=== PATIENT | male | born 1945 | race African-American/Black ===

== ENCOUNTER 2017-01-05 12:14 | Inpatient (IN) | payer OTHER ==
[~2017-01-05] VITALS: Ht 167.6 cm; Wt 63.5 kg
--- NOTE | ~2017-01-05 | EKG ---
[address] [place] [address] ELECTROCARDIOGRAM REPORT Name: MINGO LARA Room #: 450-P ADM IN M.R.#: [id number] Admission: 01/05/17 Attend Phys: Charles Bazan DO Discharge: Date of : 41 Report #: [id number] THIS REPORT FOR: //name// [facility] ED Test Date: 2017-01-05 Test Time: 12:58:27 Pat Name: MINGO LARA Department: Room: 450 Gender: M Human Resources Intern: VINAYAK : 1945 Requested By: Pool Govea Order Number: [id number] MD: Ricky Quinn Measurements Intervals [place] Rate: 75 P: -1 IA: 142 QRS: -4 QRSD: 74 T: 1 QT: 390 QTc: 436 Interpretive Statements Sinus rhythm Borderline T abnormalities, inferior leads Minimal ST elevation, anterior leads No previous ECG available for comparison Electronically Signed On 01-06-2017 13:46:28 CDT by Ricky Quinn [email or web address] <ELECTRONICALLY SIGNED> By: Ricky Quinn MD, [facility] 01/06/17 1346 1258 57 Ricky Quinn MD, FACC /EPI
[2017-01-05 12:16] VITALS: BP 110/64
[2017-01-05 13:00] LABS: CALCIUM 9.8 mg/dL (8.5-10.1); CREATININE 1.9 mg/dL (0.7-1.3); POTASSIUM 4.7 mmol/L (3.5-5.1)
[2017-01-05 13:09] LABS: ALBUMIN 4.2 g/dL (3.4-5.0); TOTAL BILIRUBIN 0.6 mg/dL (<0.1-1.0); TOTAL PROTEIN 8.6 g/dL (6.4-8.2); TROPONIN-I 0.04 ng/mL (<0.04-0.07)
[2017-01-05 14:27] LABS: ABSOLUTE NEUTROPHILS 7.5 thou/uL (1.4-8.2); BASOPHILS 1.4 % (0.0-2.0); EOSINOPHILS 3.5 % (0.0-3.0); HEMATOCRIT 43.6 % (42.0-52.0); HEMOGLOBIN 14.1 gm/dL (14.0-18.0); LYMPHOCYTES 24.8 % (24.0-44.0); MCH 30.2 pg (26.0-34.0); MCHC 32.2 g/dL (28.0-37.0); MCV 93.6 fL (80.0-100.0); MONOCYTES 6.2 % (1.0-8.0); PLATELET COUNT 222 thou/uL (150-400); POLYS 64.1 % (36.0-66.0); RBC 4.66 mil/uL (4.50-6.00); WBC 11.7 thou/uL (4.0-11.0)
[2017-01-05 14:31] LABS: MANUAL DIFF NO
[2017-01-05 15:26] VITALS: BP 137/81
[2017-01-05 15:48] LABS: URINE BILIRUBIN NEGATIVE (Negative); URINE BLOOD NEGATIVE (Negative); URINE COLOR YELLOW; URINE GLUCOSE-RANDOM* NEGATIVE (Negative); URINE KETONES NEGATIVE (Negative); URINE LEUKOCYTES-REFLEX NEGATIVE (Negative); URINE PROTEIN (DIPSTICK) NEGATIVE (Negative); URINE UROBILINOGEN 0.2 E.U./dl (0.2-1.0)
[2017-01-05 16:08] VITALS: BP 133/76
[2017-01-05] MEDS ORDERED: PLAVIX 75 MG TA75 M1 PO (16:36)
[2017-01-05] MEDS ORDERED: ASPIR 8181 MG PO ×2 (16:37→16:38)
[2017-01-05] MEDS ORDERED: GRALISE600 MG PO (16:38)
[2017-01-05] MEDS ORDERED: REMERON15 MG PO (16:39)
[2017-01-05] MEDS ORDERED: METOPROLOL SUC100 MG PO (16:39)
[2017-01-05] MEDS ORDERED: PROTONIX40 M1 PO (16:40)
[2017-01-05] MEDS ORDERED: CILOSTAZOL 100100 M1 PO (16:40)
[2017-01-05] MEDS ORDERED: PRAVACHOL20 MG PO (16:40)
[2017-01-05] MEDS ORDERED: ACCUNEB SO1.25 MG/1 INH (16:42)
[2017-01-05] MEDS ORDERED: CALCIUM 500 +1 EAC5 PO (16:43)
[2017-01-05] MEDS ORDERED: VITAMIN D 5050000 I1 PO (16:44)
[2017-01-05] MEDS ORDERED: OXYCODONE HCL15 MG PO (16:44)
[2017-01-05 17:06] VITALS: BP 123/85
[2017-01-05 17:24] LABS: PROTIME 10.2 Seconds (9.3-11.4)
[2017-01-05 21:20] VITALS: BP 115/68
[2017-01-06] VITALS (7 sets, daily range): BP systolic 103–130; BP diastolic 20–81
[2017-01-07 03:01] VITALS: BP 121/77
[2017-01-07 04:51] LABS: ABSOLUTE NEUTROPHILS 9.1 thou/uL (1.4-8.2); BASOPHILS 0.4 % (0.0-2.0); EOSINOPHILS 0.8 % (0.0-3.0); HEMATOCRIT 40.9 % (42.0-52.0); HEMOGLOBIN 13.5 gm/dL (14.0-18.0); LYMPHOCYTES 17.1 % (24.0-44.0); MCH 30.5 pg (26.0-34.0); MCV 92.3 fL (80.0-100.0); MONOCYTES 4.9 % (1.0-8.0); PLATELET COUNT 201 thou/uL (150-400); POLYS 76.8 % (36.0-66.0); RBC 4.43 mil/uL (4.50-6.00); WBC 11.8 thou/uL (4.0-11.0)
[2017-01-07 05:06] LABS: CALCIUM 8.9 mg/dL (8.5-10.1); CREATININE 1.2 mg/dL (0.7-1.3); POTASSIUM 3.4 mmol/L (3.5-5.1)
[2017-01-07 05:12] LABS: MANUAL DIFF NO
[2017-01-07 07:09] VITALS: BP 124/75
[2017-01-07 11:11] VITALS: BP 107/66
[2017-01-07 11:44] VITALS: BP 107/66
[2017-01-07 13:16] VITALS: BP 107/66
[2017-01-07 13:36] VITALS: BP 107/66
== END 2017-01-07 17:25 | disposition home health service (06) | DRG 682 ==
LOC: ER 12:14 → EROBS 15:07 → 4W 15:07 → ENTRNSPT 01-07 17:15 → 4W 01-07 17:25
PROVIDERS: Internal Medicine Endocrinology, Diabetes & Metabolism; Physician Assistant
DX: N17.9 Acute kidney failure, unspecified (principal); G93.41 Metabolic encephalopathy; E86.0 Dehydration; G89.29 Other chronic pain; N18.9 Chronic kidney disease, unspecified; J44.9 Chronic obstructive pulmonary disease, unspecified; Z87.891 Personal history of nicotine dependence
CPT/HCPCS: 10045

== ENCOUNTER 2018-04-12 13:26 | Inpatient (IN) | payer OTHER ==
[~2018-04-12] VITALS: Ht 167.6 cm; Wt 65.3 kg
--- NOTE | ~2018-04-12 | HC ---
[facility] [place] [address] CONSULTATION Name: MINGO LARA Hugo Room #: 357-P [facility] IN M.R.#: [id number] Admission: 04/12/18 Attend Phys: Osmin Castro MD Discharge: Date of : 41 Report #: [id number] THIS REPORT FOR: //name// CC: FAM unknown Osmin Castro DATE OF SERVICE: 04/13/2018 TYPE OF REPORT: Infectious disease consultation. ATTENDING PHYSICIAN: Osmin Castro M.D. REASON FOR CONSULTATION: Pneumonia. HISTORY OF PRESENT ILLNESS: A 72-year-old -Iraqi man, admitted through the Emergency Room with history of increasing cough and sputum production, fever, malaise, sweats and significant weakness. Today, the patient feels better, received a dose of Rocephin and Levaquin 750 IV daily. PAST MEDICAL HISTORY: COPD, restless legs syndrome, stent in the legs, neck arthritis and chronic pain syndrome. MEDICATIONS: At home include clopidogrel bisulfate 75 mg daily, aspirin 81 mg daily, gabapentin 600 mg p.o. t.i.d., mirtazapine 15 mg at bedtime, metoprolol 100 p.o. b.i.d., pravastatin 20 mg at bedtime, pantoprazole 40 mg daily, albuterol inhalation treatments, oxycodone IR 15 mg q. 6h. p.r.n. and ergocalciferol 50,000 units weekly. Here at the hospital, the patient receiving treatment with Levaquin 750 mg daily and receive a gram of vancomycin IV. He is also on treatment with senna, oxycodone p.r.n., polyethylene glycol, subcutaneous heparin, insulin lispro per sliding scale, p.r.n. glucose, glucagon and p.r.n. acetaminophen. SOCIAL HISTORY: See H and P, old records. FAMILY HISTORY: See H and P, old records. REVIEW OF SYSTEMS: As above and see H and P. PHYSICAL EXAMINATION: GENERAL: Elderly man. VITAL SIGNS: Temperature on admission 102.6, down to 100 this morning, pulse 106, respirations 17, BP 94/59 and O2 saturation 100% on 4 liters oxygen nasal cannula. HEENMT: Head normocephalic and atraumatic. Heavy arcus cornealis. Bilateral pupils reactive to light. Mouth edentulous. No thrush. NECK: Supple. No thyromegaly. [facility] [address] [place] [address] CONSULTATION Name: MINGO LARA Room #: 357-P [facility] IN [facility]#: [id number] Admission: 04/12/18 Attend Phys: Osmin Castro MD Discharge: Date of : 43 Report #: [id number] LUNGS: Crackles at right base posteriorly. HEART: S1 and S2. No gallop or murmur. ABDOMEN: Soft. No masses or megaly. GENITALIA AND RECTAL: Deferred. EXTREMITIES: No clubbing or cyanosis. NEUROLOGICAL: Grossly within normal limits. LABORATORY DATA: Azotemia of 25 and a BUN of 25 and creatinine 1.6, resolved after intravenous fluids hydration. The patient's albumin is decreased at 2.2 g/dL today. The white blood cell count from 16,800 drops to 15,900 today and hemoglobin from 15.2 g/dL drops to 11.5 g/dL and platelets 220,000. The urinalysis negative. MICROBIOLOGY DATA: Blood cultures obtained, negative so far. Rapid influenza test negative. RADIOLOGICAL DATA: CT scan chest PE protocol negative for pulmonary embolism revealed emphysematous changes and right basilar infiltrate. Colonic dilatation noted. ASSESSMENT: 1. Right lower lobe pneumonia, possible pneumococcal. 2. Emphysematous changes. 3. Colonic distention, question etiology. 4. Dehydration, improved. 5. Azotemia, improved. 6. Status post stenting of neck and lower extremities. 7. Edentulous. SUGGESTIONS: Recommend obtaining urine for pneumococcal and legionella antigen as well as ESR and CRP and since the patient already improved, we will continue Levaquin 750 mg IV daily for possible community-acquired pneumonia. Dr. Castro, thank you for requesting my suggestions. <ELECTRONICALLY SIGNED> By: Dante Ross MD 04/14/18 1248 1141 0004 Dante Ross MD /nt
--- NOTE | ~2018-04-12 | EKG ---
[address] [address] ELECTROCARDIOGRAM REPORT Name: MINGO LARA Room #: 357-P ADM IN M.R.#: [id number] Admission: 04/12/18 Attend Phys: Osmin Castro MD Discharge: Date of : 43 Report #: [id number] THIS REPORT FOR: //name// [facility] ED Test Date: 2018-04-12 Test Time: 15:01:44 Pat Name: MINGO LARA Department: Room: 357 Gender: M Senior Test Engineer: Ana. : 1945 Requested By: Esperanza Gaytan Order Number: [id number] MD: Quang Ross Measurements Intervals [place] Rate: 121 P: 48 IA: 129 QRS: 62 QRSD: 65 T: 69 QT: 286 QTc: 406 Interpretive Statements Sinus tachycardia Probable left atrial enlargement Compared to ECG 01/05/2017 12:58:27 Sinus rhythm no longer present T-wave abnormality no longer present ST (T wave) deviation no longer present Electronically Signed On 04-12-2018 20:50:38 OFFICER CAPTAIN by Quang Ross [email or web address] <ELECTRONICALLY SIGNED> By: Quang Ross MD 04/12/182049 1501 1501 Quang Ross MD /EPI
[~2018-04-12 13:26] MED LIST: ACCUNEB SO1.25 MG/1 INH; ASPIR 8181 MG PO; CALCIUM 500 +1 EAC5 PO; CILOSTAZOL 100100 M1 PO; GRALISE600 MG PO; METOPROLOL SUC100 MG PO; OXYCODONE HCL15 MG PO; PLAVIX 75 MG TA75 M1 PO; PRAVACHOL20 MG PO; PROTONIX40 M1 PO; REMERON15 MG PO; VITAMIN D 5050000 I1 PO
[2018-04-12 13:27] VITALS: BP 118/76
[2018-04-12 14:18] LABS: URINE BILIRUBIN NEGATIVE (Negative); URINE BLOOD NEGATIVE (Negative); URINE CLARITY CLEAR; URINE COLOR YELLOW; URINE GLUCOSE-RANDOM* NEGATIVE (Negative); URINE KETONES NEGATIVE (Negative); URINE LEUKOCYTES-REFLEX NEGATIVE (Negative); URINE NITRITE-REFLEX NEGATIVE (Negative); URINE PROTEIN (DIPSTICK) NEGATIVE (Negative); URINE UROBILINOGEN 0.2 E.U./dl (0.2-1.0)
[2018-04-12 14:47] LABS: HEMATOCRIT 45.3 % (42.0-52.0); HEMOGLOBIN 15.2 gm/dL (14.0-18.0); MCH 32.5 pg (26.0-34.0); MCHC 33.7 g/dL (28.0-37.0); MCV 96.6 fL (80.0-100.0); RBC 4.69 mil/uL (4.50-6.00); RDW 14.8 % (10.5-14.5); WBC 16.8 thou/uL (4.0-11.0)
[2018-04-12 14:56] LABS: ANION GAP 10 mmol/L (7-16); BUN 25 mg/dL (7-18); CALCIUM 9.9 mg/dL (8.5-10.1); CHLORIDE 102 mmol/L (98-107); CO2 23 mmol/L (21-32); CREATININE 1.6 mg/dL (0.7-1.3); GLUCOSE 97 mg/dL (74-106); POTASSIUM 4.6 mmol/L (3.5-5.1); SODIUM 135 mmol/L (136-145)
[2018-04-12 15:04] LABS: ALBUMIN 3.5 g/dL (3.4-5.0); LIPASE 117 U/L (73-393); SGOT 24 U/L (15-37); SGPT 25 U/L (30-65); TOTAL BILIRUBIN 0.5 mg/dL (<0.1-1.0); TOTAL PROTEIN 8.3 g/dL (6.4-8.2); TROPONIN-I <0.06 ng/mL (<0.06)
[2018-04-12 18:28] VITALS: BP 118/76
[2018-04-12 18:47] VITALS: BP 126/72
[2018-04-12 19:30] VITALS: BP 106/69
[2018-04-12] MEDS ORDERED: FOSAMAX 70 MG T70 MG PO (19:53)
[2018-04-12] MEDS ORDERED: CILOSTAZOL 100100 M1 PO (19:53)
[2018-04-12] MEDS ORDERED: K-DUR10 MEQ PO (19:55)
[2018-04-12] MEDS ORDERED: ROBAXIN 750 MG750 M1 PO (19:56)
[2018-04-12] MEDS ORDERED: OMEPRAZOLE 20 M20 M1 PO (19:57)
[2018-04-12] MEDS ORDERED: PAXIL10 MG PO (19:58)
[2018-04-12] MEDS ORDERED: KONSYL PSYLLIU3.4 GM PO (19:59)
[2018-04-13] VITALS (7 sets, daily range): BP systolic 94–131; BP diastolic 59–83
[2018-04-13 05:42] LABS: HEMATOCRIT 35.4 % (42.0-52.0); MCH 31.6 pg (26.0-34.0); MCHC 32.6 g/dL (28.0-37.0); MCV 96.9 fL (80.0-100.0); RBC 3.65 mil/uL (4.50-6.00); WBC 15.9 thou/uL (4.0-11.0)
[2018-04-13 05:49] LABS: HEMOGLOBIN 11.5 gm/dL (14.0-18.0)
[2018-04-13 05:57] LABS: ALBUMIN 2.2 g/dL (3.4-5.0); CALCIUM 8.4 mg/dL (8.5-10.1); POTASSIUM 3.9 mmol/L (3.5-5.1); TOTAL BILIRUBIN 0.5 mg/dL (<0.1-1.0)
[2018-04-14 03:45] VITALS: BP 127/80
[2018-04-14 07:36] VITALS: BP 107/69
[2018-04-14 10:15] LABS: ABSOLUTE NEUTROPHILS 8.8 thou/uL (1.4-8.2); BASOPHILS 0.7 % (0.0-2.0); EOSINOPHILS 0.9 % (0.0-3.0); HEMOGLOBIN 12.1 gm/dL (14.0-18.0); LYMPHOCYTES 18.4 % (24.0-44.0); MCH 31.9 pg (26.0-34.0); MCHC 32.8 g/dL (28.0-37.0); MCV 97.3 fL (80.0-100.0); MONOCYTES 2.8 % (1.0-8.0); PLATELET COUNT 222 thou/uL (150-400); POLYS 77.2 % (36.0-66.0); WBC 11.3 thou/uL (4.0-11.0)
[2018-04-14 10:19] LABS: CALCIUM 9.2 mg/dL (8.5-10.1); CREATININE 1.2 mg/dL (0.7-1.3); POTASSIUM 3.7 mmol/L (3.5-5.1)
[2018-04-14 11:34] VITALS: BP 118/75
[2018-04-14 15:47] VITALS: BP 122/77
[2018-04-14 18:57] VITALS: BP 131/83
[2018-04-15 03:33] VITALS: BP 125/77
[2018-04-15 07:24] VITALS: BP 120/77
[2018-04-15 11:46] VITALS: BP 146/100
[2018-04-15 13:15] VITALS: BP 136/84
[2018-04-15 17:06] VITALS: BP 120/66
[2018-04-15 19:31] VITALS: BP 131/90
[2018-04-16 03:22] VITALS: BP 113/73
[2018-04-16 07:25] VITALS: BP 128/82
[2018-04-16] MEDS ORDERED: LEVAQUIN 500 M500 M3 PO (08:26)
[2018-04-16 10:11] VITALS: BP 128/82
[2018-04-16 11:11] VITALS: BP 128/82
== END 2018-04-16 13:29 | disposition home health service (06) | DRG 871 ==
LOC: ER 13:26 → 3W 17:11 → EROBS 17:11 → 3W 19:12 → ENTRNSPT 04-16 12:10 → EDTRNSPTSTS 04-16 12:26 → 3W 04-16 13:29
PROVIDERS: Family Medicine; Student in an Organized Health Care Education/Training Program
DX: A41.9 Sepsis, unspecified organism (principal); J18.1 Lobar pneumonia, unspecified organism; J96.10 Chronic respiratory failure, unspecified whether with hypoxia or hypercapnia; N17.9 Acute kidney failure, unspecified; G25.81 Restless legs syndrome; M19.90 Unspecified osteoarthritis, unspecified site; E86.0 Dehydration; J43.9 Emphysema, unspecified; M81.0 Age-related osteoporosis without current pathological fracture; E78.5 Hyperlipidemia, unspecified; M54.5 Low back pain; G47.00 Insomnia, unspecified; F17.210 Nicotine dependence, cigarettes, uncomplicated; Z71.6 Tobacco abuse counseling; Z99.81 Dependence on supplemental oxygen; Z95.820 Peripheral vascular angioplasty status with implants and grafts; Z79.02 Long term (current) use of antithrombotics/antiplatelets; Z79.82 Long term (current) use of aspirin; Z79.899 Other long term (current) drug therapy
CPT/HCPCS: 10879

== ENCOUNTER 2018-06-04 08:02 | Emergency (ER) | payer OTHER ==
[~2018-06-04] VITALS: Ht 167.6 cm; Wt 66.7 kg
[~2018-06-04 08:02] MED LIST changes: +FOSAMAX 70 MG T70 MG PO; +K-DUR10 MEQ PO; +KONSYL PSYLLIU3.4 GM PO; +LEVAQUIN 500 M500 M3 PO; +OMEPRAZOLE 20 M20 M1 PO; +PAXIL10 MG PO; +ROBAXIN 750 MG750 M1 PO
[2018-06-04 08:54] LABS: ABSOLUTE NEUTROPHILS 11.7 thou/uL (1.4-8.2); BASOPHILS 0.9 % (0.0-2.0); EOSINOPHILS 0.1 % (0.0-3.0); HEMATOCRIT 45.9 % (42.0-52.0); HEMOGLOBIN 15.6 gm/dL (14.0-18.0); LYMPHOCYTES 13.2 % (24.0-44.0); MONOCYTES 2.7 % (1.0-8.0); PLATELET COUNT 272 thou/uL (150-400); POLYS 83.1 % (36.0-66.0); RBC 4.88 mil/uL (4.50-6.00); RDW 13.8 % (10.5-14.5); WBC 14.1 thou/uL (4.0-11.0)
[2018-06-04 08:57] LABS: ANION GAP 15 mmol/L (7-16); BUN 13 mg/dL (7-18); CALCIUM 10.1 mg/dL (8.5-10.1); CHLORIDE 97 mmol/L (98-107); CO2 23 mmol/L (21-32); CREATININE 1.2 mg/dL (0.7-1.3); GLUCOSE 110 mg/dL (74-106); POTASSIUM 4.3 mmol/L (3.5-5.1); SODIUM 135 mmol/L (136-145)
[2018-06-04 09:05] LABS: ALBUMIN 3.9 g/dL (3.4-5.0); LIPASE 85 U/L (73-393); SGOT 22 U/L (15-37); SGPT 18 U/L (30-65); TOTAL BILIRUBIN 0.5 mg/dL (<0.1-1.0); TOTAL PROTEIN 9.2 g/dL (6.4-8.2); TROPONIN-I <0.06 ng/mL (<0.06)
--- NOTE | 2018-06-04 09:24 | EKG ---
[place] [address] [facility] [place] [address] ELECTROCARDIOGRAM REPORT Name: MINGO LARA Hugo Room #: [facility]..#: [id number] Admission: Attend Phys: Discharge: Date of : 43 Report #: [id number] THIS REPORT FOR: //name// [facility] ED Test Date: 2018-06-04 Test Time: 08:58:13 Pat Name: MINGO LARA Department: Room: Gender: M [employer] Shift Lead: latoya : 1945 Requested By: Fredy Gomez Order Number: [id number] MD: Ricky Quinn Measurements Intervals [place] Rate: 90 P: 59 OK: 143 QRS: 73 QRSD: 83 T: 72 QT: 386 QTc: 473 Interpretive Statements Sinus rhythm Abnormal R-wave progression, early transition Compared to ECG 04/12/2018 15:01:44 Sinus tachycardia no longer present Electronically Signed On 06-04-2018 9:24:06 PHYSICAL EDUCATION DEPARTMENT CHAIR by Ricky Quinn [email or web address] <ELECTRONICALLY SIGNED> By: Ricky Quinn MD, [facility] 06/04/18 0924 0858 0858 Ricky Quinn MD, FACC /EPI
[2018-06-04 10:12] LABS: URINE BILIRUBIN NEGATIVE (Negative); URINE BLOOD NEGATIVE (Negative); URINE CLARITY CLEAR; URINE COLOR YELLOW; URINE GLUCOSE-RANDOM* NEGATIVE (Negative); URINE KETONES TRACE (Negative); URINE LEUKOCYTES-REFLEX NEGATIVE (Negative); URINE NITRITE-REFLEX NEGATIVE (Negative); URINE PROTEIN (DIPSTICK) NEGATIVE (Negative); URINE SPECIFIC GRAVITY 1.015 (1.005-1.035); URINE UROBILINOGEN 0.2 E.U./dl (0.2-1.0)
[2018-06-04] MEDS ORDERED: ZOFRAN ODT4 MG DISSOLVE (10:32)
[2018-06-04] MEDS ORDERED: CLONIDINE0.1 PO (12:00)
[2018-06-04 12:07] VITALS: BP 168/99
== END 2018-06-04 12:08 | disposition home or self-care (01) ==
LOC: ER 08:02
PROVIDERS: Emergency Medicine
DX: K56.41 Fecal impaction (principal); I10 Essential (primary) hypertension; R11.2 Nausea with vomiting, unspecified; J44.9 Chronic obstructive pulmonary disease, unspecified; G25.81 Restless legs syndrome; M19.90 Unspecified osteoarthritis, unspecified site; G89.29 Other chronic pain; Z87.891 Personal history of nicotine dependence

== ENCOUNTER 2018-06-05 20:44 | Inpatient (IN) | payer OTHER ==
[~2018-06-05] VITALS: Ht 152.4 cm; Wt 63.6 kg
[~2018-06-05 20:44] MED LIST changes: +CLONIDINE0.1 PO; +ZOFRAN ODT4 MG DISSOLVE
[2018-06-05 21:07] LABS: URINE BLOOD NEGATIVE (Negative); URINE CLARITY CLEAR; URINE COLOR YELLOW; URINE GLUCOSE-RANDOM* NEGATIVE (Negative); URINE KETONES TRACE (Negative); URINE LEUKOCYTES-REFLEX NEGATIVE (Negative); URINE NITRITE-REFLEX NEGATIVE (Negative); URINE PROTEIN (DIPSTICK) 2+ (Negative); URINE SPECIFIC GRAVITY >= 1.030 (1.005-1.035); URINE UROBILINOGEN 0.2 E.U./dl (0.2-1.0)
[2018-06-05 21:11] LABS: URINE BILIRUBIN NEGATIVE (Negative)
[2018-06-05 21:15] LABS: AMP/METHAMP Negative (Negative); BARBITURATES Negative (Negative); BENZODIAZEPINES POSITIVE (Negative); COCAINE Negative (Negative); METHADONE Negative (Negative); OPIATES POSITIVE (Negative); PCP Negative (Negative)
[2018-06-05 21:17] LABS: BACTERIA-REFLEX 1-9 Few /HPF (None Seen); CRYSTALS None Seen /LPF (None Seen); HYALINE CASTS 0-3 Few /LPF (None Seen); SQUAMOUS None Seen /LPF (0-3); URINE RBC None Seen /HPF (0-2); URINE WBC-REFLEX None Seen /HPF (0-5)
[2018-06-05 21:29] LABS: ABSOLUTE NEUTROPHILS 7.7 thou/uL (1.4-8.2); BASOPHILS 0.2 % (0.0-2.0); EOSINOPHILS 1.4 % (0.0-3.0); HEMATOCRIT 41.8 % (42.0-52.0); HEMOGLOBIN 14.2 gm/dL (14.0-18.0); LYMPHOCYTES 29.8 % (24.0-44.0); MCH 31.9 pg (26.0-34.0); MCHC 33.9 g/dL (28.0-37.0); MCV 93.9 fL (80.0-100.0); MONOCYTES 5.5 % (1.0-8.0); PLATELET COUNT 265 thou/uL (150-400); POLYS 63.1 % (36.0-66.0); RBC 4.45 mil/uL (4.50-6.00); RDW 13.9 % (10.5-14.5); WBC 12.2 thou/uL (4.0-11.0)
[2018-06-05 21:39] LABS: CALCIUM 8.4 mg/dL (8.5-10.1); CREATININE 2.1 mg/dL (0.7-1.3); POTASSIUM 3.5 mmol/L (3.5-5.1)
[2018-06-05 21:50] LABS: ALBUMIN 2.9 g/dL (3.4-5.0); TOTAL BILIRUBIN 0.2 mg/dL (<0.1-1.0); TOTAL PROTEIN 7.1 g/dL (6.4-8.2); TROPONIN-I 0.06 ng/mL (<0.06)
[2018-06-06 00:37] VITALS: BP 106/70
[2018-06-06 00:55] VITALS: BP 105/77
[2018-06-06 05:38] VITALS: BP 108/70
--- NOTE | 2018-06-06 07:54 | NUR ---
PT ARRIVED TO ROOM 362 VIA CART FROM ER WITH IV ANTIBIOTICS IN PROGRESS. ADMISSION ASSESSMENTS COMPLETED. PT HAS DENIED ANY ABDOMINAL PAIN OR NAUSEA. DOES REPORTS LOWER BACK PAIN, WHICH PT STATES IS A CHRONIC CONDITION. DENIES ANY ALLERGIES. SON CHARLINE ASSISTED WITH ANSWERING QUESTIONS.
[2018-06-06 08:55] VITALS: BP 111/79
--- NOTE | 2018-06-06 10:06 | EKG ---
[address] [address] ELECTROCARDIOGRAM REPORT Name: MINGO LARA Room #: 362-P ADM IN M.R.#: [id number] Admission: 06/05/18 Attend Phys: José Antonio Vargas Discharge: Date of : 43 Report #: [id number] THIS REPORT FOR: //name// [facility] ED Test Date: 2018-06-05 Test Time: 20:52:44 Pat Name: MINGO LARA Department: Room: 362 Gender: M Millwork Estimator: THALIA : 1945 Requested By: Esperanza Gaytan Order Number: [id number] MD: Quang Ross Measurements Intervals [place] Rate: 117 P: 38 OK: 116 QRS: 66 QRSD: 72 T: 72 QT: 345 QTc: 482 Interpretive Statements Sinus tachycardia Atrial premature complex Probable left atrial enlargement Abnormal R-wave progression, early transition Borderline prolonged QT interval Compared to ECG 06/04/2018 08:58:13 Atrial premature complex(es) now present Sinus rhythm no longer present Electronically Signed On 06-06-2018 10:06:31 TELESALES SPECIALIST by Quang Ross [email or web address] <ELECTRONICALLY SIGNED> By: Quang Ross MD 06/06/18 1006 51 51 Quang Ross MD /EPI
[2018-06-06 16:06] VITALS: BP 117/76
--- NOTE | 2018-06-06 17:14 | NUR ---
COMPLAINED OF PAIN TO RIGHT HIP AND PRN PAIN MEDICATION ADMINISTERED. PAIN MEDICATION EFFECITVE. FAMILY HERE VISIT. WILL CONT WITH PLAN OF CARE.
[2018-06-06 20:00] VITALS: BP 136/85
[2018-06-07 04:40] VITALS: BP 120/76
[2018-06-07 05:39] LABS: HEMATOCRIT 34.6 % (42.0-52.0); MCH 32.1 pg (26.0-34.0); MCHC 33.5 g/dL (28.0-37.0); MCV 95.9 fL (80.0-100.0); RBC 3.61 mil/uL (4.50-6.00); RDW 13.8 % (10.5-14.5); WBC 9.2 thou/uL (4.0-11.0)
[2018-06-07 05:43] LABS: HEMOGLOBIN 11.6 gm/dL (14.0-18.0)
[2018-06-07 05:48] LABS: CREATININE 1.2 mg/dL (0.7-1.3); POTASSIUM 3.8 mmol/L (3.5-5.1)
--- NOTE | 2018-06-07 07:29 | NUR ---
pt resting off and on during the night. he needed his medication for insomnia tonight. continues on iv fluids. using urinal at bedside. he is pleasant and cooperative. he did take his medication for pain tonight with only minimal effectiveness according to pain scale evaluation. progressing toward discharge goals
[2018-06-07 07:46] VITALS: BP 120/69
[2018-06-07 16:02] VITALS: BP 125/87
--- NOTE | 2018-06-07 19:39 | NUR ---
REQUESTED PAIN MEDICATION THIS AM AND PAIN HAS BEEN UNDER CONTROL THROUGH THE DAY. NO OTHER COMPLAINTS NOTED. HE HAS RESTED IN BED MOST OF THE DAY. OFFERED TO SEAT IN THE CHAIR AND HE STATED HE IS TOO TIRED FOR THAT. STATES HE WILL GET UP TOMORROW. WILL CONT WITH PLAN OF CARE.
[2018-06-07 20:05] VITALS: BP 120/69
--- NOTE | 2018-06-08 03:42 | NUR ---
encouraged turns, he shifts his hips and turns to side on his own. complains of pain to his rt hip and back. his medication for pain is partially effective. continues on iv fluids and antibiotics. hi is talkative and cheerful. progressing toward discharge goals.
[2018-06-08 03:50] VITALS: BP 151/93
[2018-06-08 04:06] LABS: HEMATOCRIT 35.8 % (42.0-52.0); MCH 31.7 pg (26.0-34.0); MCHC 33.5 g/dL (28.0-37.0); MCV 94.6 fL (80.0-100.0); RBC 3.78 mil/uL (4.50-6.00); RDW 13.9 % (10.5-14.5); WBC 9.2 thou/uL (4.0-11.0)
[2018-06-08 04:14] LABS: CALCIUM 8.3 mg/dL (8.5-10.1); CREATININE 1.3 mg/dL (0.7-1.3); POTASSIUM 3.9 mmol/L (3.5-5.1)
[2018-06-08 07:35] VITALS: BP 122/72
--- NOTE | 2018-06-08 13:17 | NUR ---
ASSESSMENT: CM REVIEWED CHART AND MET WITH PATIENT AT THE BEDSIDE. PT IS ALERT AND ORIENTED X4. PT REPORTS THAT HE LIVES IN A HOUSE WITH HIS SON, HIS SONS MOTHER, AND HIS SONS DAUGHTER. PT REPORTS HE HAS ABOUT 6 STEPS WITH HANDRAILS TO GET IN THE HOUSE AND ALL HIS NEEDS ARE ON ONE LEVEL. PT REPORTS HE HAS A CANE AND WALKER AT HOME FOR AMBULATION. PT REPORTS HE HAS A GRAB BAR AND SHOWER BENCH. PT [facility]. PT/OT IS TO EVAL PATIENT BUT PATIENT STATING HE IS PLANNING ON DISCHARGING HOME TODAY WITH . PT WANTED REFERRAL SENT TO [facility]. CM FAXED REFERRAL AND WAITING TO HEAR BACK. PATIENT IS POSSIBLE DISCHARGE TODAY WITH .
[2018-06-08] MEDS ORDERED: CIPRO500 MG PO (13:44)
[2018-06-08] MEDS ORDERED: FLAGYL500 M1 PO (14:03)
[2018-06-08 15:12] VITALS: BP 122/72
--- NOTE | 2018-06-08 16:00 | NUR ---
PATIENT IS BEING DISCHARGED HOME AT THIS TIME WITH FAMILY. SON HERE TO PICK HIM UP. HE DID RECIEVE PAIN MEDICATION AND IT WAS EFFECTIVE. AMBULATED WITH THERAPY EARLIER.
== END 2018-06-08 15:51 | disposition home or self-care (01) | DRG 70 ==
LOC: ER 20:44 → 3W 23:42 → EROBS 23:42 → 3W 06-06 00:47 → ENTRNSPT 06-08 15:43 → EDTRNSPTSTS 06-08 15:45 → 3W 06-08 15:51
PROVIDERS: Nurse Practitioner Family; Student in an Organized Health Care Education/Training Program; ADMIT Hospitalist
DX: G93.41 Metabolic encephalopathy (principal); N17.0 Acute kidney failure with tubular necrosis; A09 Infectious gastroenteritis and colitis, unspecified; J44.9 Chronic obstructive pulmonary disease, unspecified; I10 Essential (primary) hypertension; E78.5 Hyperlipidemia, unspecified; K21.9 Gastro-esophageal reflux disease without esophagitis; G89.29 Other chronic pain; G25.81 Restless legs syndrome; K59.00 Constipation, unspecified; K76.9 Liver disease, unspecified; M19.90 Unspecified osteoarthritis, unspecified site; Z99.81 Dependence on supplemental oxygen; Z87.891 Personal history of nicotine dependence; Z95.820 Peripheral vascular angioplasty status with implants and grafts; Z79.82 Long term (current) use of aspirin; Z79.899 Other long term (current) drug therapy
CPT/HCPCS: 10879

== ENCOUNTER 2018-10-05 13:36 | Emergency (ER) | payer OTHER ==
[~2018-10-05] VITALS: Ht 172.7 cm; Wt 68.5 kg
[~2018-10-05 13:36] MED LIST changes: +CIPRO500 MG PO; +FLAGYL500 M1 PO
[2018-10-05] MEDS ORDERED: CALCIUM 500 +1 EAC5 PO (14:16)
[2018-10-05] MEDS ORDERED: CENTRUM SILVER1 EAC2 PO (14:17)
[2018-10-05] MEDS ORDERED: OMEPRAZOLE20 M2 PO (14:18)
[2018-10-05] MEDS ORDERED: OXYCONTIN15 MG PO (14:22)
[2018-10-05] MEDS ORDERED: PAXIL10 MG PO (14:22)
[2018-10-05] MEDS ORDERED: COMPAZINE10 MG PO (14:26)
[2018-10-05 14:40] LABS: ABSOLUTE NEUTROPHILS 6.8 thou/uL (1.4-8.2); BASOPHILS 0.6 % (0.0-2.0); EOSINOPHILS 2.8 % (0.0-3.0); HEMATOCRIT 33.4 % (42.0-52.0); HEMOGLOBIN 11.2 gm/dL (14.0-18.0); MCH 32.1 pg (26.0-34.0); MCHC 33.6 g/dL (28.0-37.0); MCV 95.3 fL (80.0-100.0); MONOCYTES 6.3 % (1.0-8.0); PLATELET COUNT 291 thou/uL (150-400); POLYS 68.3 % (36.0-66.0); RDW 16.1 % (10.5-14.5); WBC 9.9 thou/uL (4.0-11.0)
[2018-10-05 14:54] LABS: CREATININE 1.7 mg/dL (0.7-1.3); MAGNESIUM 2.3 mg/dL (1.8-2.4); POTASSIUM 3.9 mmol/L (3.5-5.1); TOTAL BILIRUBIN 0.2 mg/dL (<0.1-1.0); TOTAL PROTEIN 6.6 g/dL (6.4-8.2)
[2018-10-05 16:30] LABS: AMP/METHAMP Negative (Negative); BARBITURATES Negative (Negative); BENZODIAZEPINES Negative (Negative); COCAINE Negative (Negative); METHADONE Negative (Negative); OPIATES POSITIVE (Negative); PCP Negative (Negative)
[2018-10-05 17:12] VITALS: BP 123/69
--- NOTE | 2018-10-06 09:09 | EKG ---
[place] [address] [place] [address] ELECTROCARDIOGRAM REPORT Name: MINGO LARA Hugo [facility]: [facility] [id number] ������������������ Admission: 10/05/18 ������������������ Attend Phys: Discharge: 10/05/18 ������������������ Date of : 41 Report #: [id number] ����������������������������������������������������������������� [id number] THIS REPORT FOR: //name// [facility] ED Test Date: 2018-10-05 Test Time: 13:41:41 Pat Name: MINGO LARA Department: Room: Gender: M Rn Endoscopy: NMD : 1945 Requested By: Santiago Vaz Order Number: [id number] MD: Ricky Quinn Measurements Intervals [place] Rate: 74 P: 53 WV: 147 QRS: 68 QRSD: 91 T: 71 QT: 385 QTc: 428 Interpretive Statements Sinus rhythm ST segment elevation, probably early repolarization Compared to ECG 06/05/2018 20:52:44 Sinus tachycardia no longer present Atrial premature complex(es) no longer present Electronically Signed On 10-06-2018 9:09:28 CDT by Ricky Quinn [email or web address] ��������������������������������������������� <ELECTRONICALLY SIGNED> ���������������������������������������� By: Ricky Quinn MD, [facility] ��������������������������������������������� 10/06/18 0909 1341 40 Ricky Quinn MD, [facility] /EPI
== END 2018-10-05 17:14 | disposition home or self-care (01) ==
LOC: ER 13:36
PROVIDERS: Emergency Medicine
DX: T40.2X1A Poisoning by other opioids, accidental (unintentional), initial encounter (principal); E78.5 Hyperlipidemia, unspecified; K21.9 Gastro-esophageal reflux disease without esophagitis; J44.9 Chronic obstructive pulmonary disease, unspecified; G89.29 Other chronic pain; M19.90 Unspecified osteoarthritis, unspecified site; G25.81 Restless legs syndrome; Z87.891 Personal history of nicotine dependence; Y92.89 Other specified places as the place of occurrence of the external cause

== ENCOUNTER 2019-03-04 22:27 | Inpatient (IN) | payer OTHER ==
[~2019-03-04] VITALS: Ht 167.6 cm; Wt 65.8 kg
[~2019-03-04 22:27] MED LIST changes: +CENTRUM SILVER1 EAC2 PO; +COMPAZINE10 MG PO; +OMEPRAZOLE20 M2 PO; +OXYCONTIN15 MG PO
[2019-03-04 22:28] VITALS: BP 119/62
[2019-03-04 23:05] LABS: BE(vivo) -7.5 mmol/L (-2 to +3); HCO3 17.2 mmol/L (22.0-26.0); PCO2 32.9 mmHg (35.0-45.0); PO2 60.3 mmHg (80.0-100.0); pH 7.337 (7.360-7.450)
[2019-03-04 23:30] LABS: ABSOLUTE NEUTROPHILS 6.6 thou/uL (1.4-8.2); BASOPHILS 1.4 % (0.0-2.0); EOSINOPHILS 1.5 % (0.0-3.0); HEMATOCRIT 42.4 % (42.0-52.0); HEMOGLOBIN 13.9 gm/dL (14.0-18.0); LYMPHOCYTES 27.3 % (24.0-44.0); MCH 31.5 pg (26.0-34.0); MCHC 32.7 g/dL (28.0-37.0); MCV 96.4 fL (80.0-100.0); MONOCYTES 5.5 % (1.0-8.0); PLATELET COUNT 226 thou/uL (150-400); POLYS 64.3 % (36.0-66.0); RDW 16.9 % (10.5-14.5); WBC 10.3 thou/uL (4.0-11.0)
[2019-03-04 23:41] LABS: CALCIUM 9.2 mg/dL (8.5-10.1)
[2019-03-04 23:50] LABS: ALBUMIN 3.7 g/dL (3.4-5.0); MAGNESIUM 2.6 mg/dL (1.8-2.4); TOTAL BILIRUBIN 0.5 mg/dL (<0.1-1.0); TOTAL PROTEIN 8.7 g/dL (6.4-8.2)
[2019-03-04 23:53] LABS: TROPONIN-I 0.61 ng/mL (<0.06)
[2019-03-04 23:55] LABS: APTT 27.1 Seconds (24.5-32.8); INR 1.1; PROTIME 11.3 Seconds (9.3-11.4)
[2019-03-05 01:38] LABS: AMP/METHAMP Negative (Negative); BARBITURATES Negative (Negative); BENZODIAZEPINES Negative (Negative); COCAINE Negative (Negative); METHADONE Negative (Negative); OPIATES POSITIVE (Negative); PCP Negative (Negative)
[2019-03-05 02:45] VITALS: BP 117/72
[2019-03-05 03:08] VITALS: BP 116/73
[2019-03-05 05:15] VITALS: BP 120/76
--- NOTE | 2019-03-05 05:35 | NUR ---
PATIENT ADMITTED TO ROOM 209 FROM ER VIA CART ACCOMPANIED BY SON. FULL ADMIT COMPLETED. PATIENT DROWSEY BUT WAKES EASILY. STATES HE HAS CHRONIC PAIN BUT HE FEELS FINE AT THIS TIME. BLOOD CULTURES WERE DRAWN IN THE ER AND ANTIBIOTICS GIVEN. ADEQUATE OXYGENATION ON 2L NC. NO RESP DISTRESS NOTED. HEART RATE AND RHYTHM STABLE. VITAL SIGNS STABLE.
[2019-03-05 05:57] LABS: CALCIUM 8.6 mg/dL (8.5-10.1); CREATININE 1.7 mg/dL (0.7-1.3); POTASSIUM 4.3 mmol/L (3.5-5.1)
[2019-03-05 08:00] VITALS: BP 121/65
--- NOTE | 2019-03-05 10:56 | 2DMMODE ---
[facility] [address] [place] [address] 2 D/M-MODE ECHOCARDIOGRAM Name: MINGO LARA Room #: 209-P [facility] IN [facility]#: [id number] Admission: 03/05/19 Attend Phys: Axel Remy, Discharge: Date of : 43 Report #: [id number] THIS REPORT FOR: //name// APPROVED REPORT Study performed: 03/05/2019 09:51:41 EXAM: Comprehensive 2D, Doppler, and color-flow Echocardiogram Patient Location: Bedside Room #: 209 Status: routine BSA: 1.74 HR: 99 bpm BP: 120/76 mmHg Rhythm: NSR Other Information Study Quality: Fair/low windows Technically limited study due to COPD. Indications Dyspnea, elevated troponin. Hx: HTN, HLD, COPD, PVD. 2D Dimensions RVDd: 30.59 mm IVSd: 9.29 (7-11mm) LVOT Diam: 20.42 (18-24mm) LVDd: 36.31 mm PWd: 8.26 (7-11mm) LVDs: 25.49 (25-40mm) Aortic Root: 29.78 mm Volumes Left Atrial Volume (Systole) Single Plane 4CH: 21.03 mL Single Plane 2CH: 25.06 mL LA ESV Index: 14.00 mL/m2 Aortic Valve AoV Peak Bill.: 1.30 m/s AO Peak Gr.: 6.77 mmHg LVOT Max P.02 mmHg LVOT Max V: 1.23 m/s CHARMAINE Vmax: 3.09 cm2 Mitral Valve E/A Ratio: 0.7 MV Decel. Time: 193.70 ms [facility] [address] [place] [address] 2 D/M-MODE ECHOCARDIOGRAM Name: MINGO LARA Hugo Room #: 209-P [facility] IN [facility]#: [id number] Admission: 03/05/19 Attend Phys: Axel Remy, Discharge: Date of : 43 Report #: [id number] MV E Max Bill.: 0.65 m/s MV A Bill.: 0.90 m/s MV PHT: 56.17 ms IVRT: 72.66 ms Pulmonary Valve PV Peak Bill.: 0.90 m/s PV Peak Gr.: 3.21 mmHg Left Ventricle The left ventricle is normal size. There is normal LV segmental wall motion. There is normal left ventricular wall thickness. Left ventricular systolic function is normal. LVEF is 55-60%. Mild diastolic dysfunction is present (impaired relaxation pattern). Right Ventricle The right ventricle is normal size. The right ventricular systolic function is normal. Atria The left atrium size is normal. The right atrium size is normal. Aortic Valve The aortic valve is normal in structure. No aortic regurgitation is present. There is no aortic valvular stenosis. Mitral Valve The mitral valve is normal in structure. Trace mitral regurgitation. Tricuspid Valve The tricuspid valve is normal in structure. Unable to assess PA pressure. There is no tricuspid valve regurgitation noted. Pulmonic Valve Pulmonic valve is not well visualized. Great Vessels The aortic root is normal in size. Ascending aorta is not well visualized. The inferior vena cava is not well visualized. Pericardium There is no pericardial effusion noted. [facility] [address] [place] [address] 2 D/M-MODE ECHOCARDIOGRAM Name: MINGO LARA Room #: 209-P [facility] IN ..#: [id number] Admission: 03/05/19 Attend Phys: Axel Remy, Discharge: Date of : 43 Report #: [id number] <Conclusion> The left ventricle is normal size. LVEF is 55-60%. The aortic valve is normal in structure. The mitral valve is normal in structure. Trace mitral regurgitation. The tricuspid valve is normal in structure. Pulmonic valve is not well visualized. The aortic root is normal in size. Ascending aorta is not well visualized. There is no pericardial effusion noted. <ELECTRONICALLY SIGNED> By: Marcus Rodriguez MD 03/05/19 1056 1056 1056 Marcus Rodriguez MD /INF
--- NOTE | 2019-03-05 11:55 | NUR ---
PT LEFT UNIT TO [place] FOR STRESS TEST AT APPROXIMATELY 1000.
--- NOTE | 2019-03-05 13:10 | NUR ---
PT BACK FROM STRESS TEST AT 1304.
[2019-03-05 16:00] VITALS: BP 148/78
--- NOTE | 2019-03-05 17:16 | NUR ---
Chart reviewed and case discussed with the care team. Pt here with NSTEMI and Copd. Pt lives with his son and has family with him 25/11. He had a rwalker and a cane. He has had hh in the past year per [place] but none recently. Pt down for testing today. Will ask for therapy evals and follow for possible hh referral at id.
[2019-03-05 20:45] VITALS: BP 141/78
[2019-03-06 03:24] LABS: CALCIUM 8.1 mg/dL (8.5-10.1); CREATININE 1.2 mg/dL (0.7-1.3); POTASSIUM 4.2 mmol/L (3.5-5.1)
[2019-03-06 05:04] VITALS: BP 130/70
[2019-03-06 07:30] VITALS: BP 131/84
--- NOTE | 2019-03-06 07:40 | NUR ---
PT RESTING QUIETLY IN BED REPOSITIONING HIMSELF, PRN PAIN MEDS GIVEN FOR CHRONIC PAIN, VSS, VOIDING PER URINAL, IV FLUIDS INFUSING, WILL CON'T TO MONITOR PER PPOC.
--- NOTE | 2019-03-06 10:49 | NUR ---
ASLEEP, WAKES READILY. AAO. C/O LEG PAIN; WILL TREAT ORDERED. SR/ST PER TELE. ABD FIRM AND DISTENDED; DENIES ABD PAIN. PASSING FLATUS. APPETITE BRISK. FALL PRECAUTIONS IN PLACE, WILL CONTINUE TO MONITOR.
[2019-03-06 11:06] VITALS: BP 124/67
[2019-03-06 17:01] VITALS: BP 141/94
--- NOTE | 2019-03-06 18:36 | NUR ---
ASSUMED CARE AT 1300, SHIFT ASSESSMENT DONE, MEDS GIVEN, VSS. REPORTED PAIN, PRN PAIN MEDS GIVEN. ROOM AIR, NSR ON MONITOR. WILL CONTINUE TO ASSESS AND ASSIST WITH ADLs NEEDED.
[2019-03-06 20:05] VITALS: BP 139/82
--- NOTE | 2019-03-07 04:36 | NUR ---
pt resting quietly in bed thru the noc, prn pain meds given for chronic leg and back pain, assisted up to bathroom this am for medium bm, assessments as charted, vss, will con't to monitor per ppoc.
[2019-03-07 05:05] VITALS: BP 156/99
[2019-03-07 08:39] VITALS: BP 161/106
--- NOTE | 2019-03-07 10:34 | NUR ---
ASSUMED CARE AT 0700, SHIFT ASSESMENT DONE, MEDS GIVEN, VSS. REPORTED PAIN, PRN PAIN MEDS GIVEN. HAD 2 LARGE LIQUID STOOLS TODAY. REFUSED TO TAKE MIRALAX THIS AM. REMAINS ON ROOM AIR, RECEIVING IV FLUIDS. WILL CONTINUE TO ASSESS AND ASSIST WITH ADLs NEEDED.
--- NOTE | 2019-03-07 11:13 | EKG ---
[address] [address] ELECTROCARDIOGRAM REPORT Name: MINGO LARA Room #: 209-P ADM IN M.R.#: [id number] Admission: 03/05/19 Attend Phys: Axel Remy MD Discharge: Date of : 41 Report #: [id number] THIS REPORT FOR: //name// [facility] ED Test Date: 2019-03-04 Test Time: 23:01:28 Pat Name: MINGO LARA Department: Room: 209 Gender: M Machine Chocolate Molder: ashly : 1945 Requested By: Fredy Gomez Order Number: [id number] MD: Quang Ross Measurements Intervals [place] Rate: 80 P: 51 NM: 142 QRS: 58 QRSD: 73 T: 58 QT: 363 QTc: 419 Interpretive Statements Sinus rhythm Probable left atrial enlargement Compared to ECG 10/05/2018 13:41:41 ST (T wave) deviation no longer present Early repolarization no longer present Electronically Signed On 03-07-2019 11:13:11 QM NURSE by Quang Ross [email or web address] <ELECTRONICALLY SIGNED> By: Quang Ross MD 03/07/19 1113 00 00 Quang Ross MD /EPI
[2019-03-07 11:30] LABS: HEMATOCRIT 38.2 % (42.0-52.0); HEMOGLOBIN 12.3 gm/dL (14.0-18.0); MCH 31.2 pg (26.0-34.0); MCHC 32.2 g/dL (28.0-37.0); RBC 3.94 mil/uL (4.50-6.00); RDW 16.7 % (10.5-14.5); WBC 12.3 thou/uL (4.0-11.0)
[2019-03-07 11:50] LABS: ALBUMIN 3.2 g/dL (3.4-5.0); CALCIUM 8.4 mg/dL (8.5-10.1); CREATININE 1.2 mg/dL (0.7-1.3); MAGNESIUM 2.2 mg/dL (1.8-2.4); POTASSIUM 3.7 mmol/L (3.5-5.1); TOTAL BILIRUBIN 0.3 mg/dL (<0.1-1.0); TOTAL PROTEIN 7.5 g/dL (6.4-8.2)
[2019-03-07 12:32] VITALS: BP 149/99
[2019-03-07 16:05] VITALS: BP 144/93
[2019-03-07 20:15] VITALS: BP 161/93
[2019-03-08 01:06] VITALS: BP 141/97
[2019-03-08 05:00] VITALS: BP 161/107
[2019-03-08 05:56] LABS: CALCIUM 8.2 mg/dL (8.5-10.1); POTASSIUM 4.2 mmol/L (3.5-5.1)
[2019-03-08 07:53] LABS: HEMATOCRIT 38.6 % (42.0-52.0); HEMOGLOBIN 12.4 gm/dL (14.0-18.0); MCH 31.3 pg (26.0-34.0); MCHC 32.2 g/dL (28.0-37.0); MCV 97.1 fL (80.0-100.0); RBC 3.97 mil/uL (4.50-6.00); RDW 16.3 % (10.5-14.5)
[2019-03-08 08:00] VITALS: BP 152/89
[2019-03-08 11:50] VITALS: BP 141/76
--- NOTE | 2019-03-08 12:52 | NUR ---
ASSUMED CARE AT 0700, SHIFT ASSESSMENT DONE, MEDS GIVEN, VSS. ON ROOM AIR. PAIN REPORTED TO BILATERAL LOWER EXTREMITY, PRN PAIN MEDS GIVEN. HAD A BM THIS AM. IV FLUIDS DISCONTINUED. WILL CONTINUE TO ASSESS AND ASSIST WITH ADLs NEEDED.
[2019-03-08 16:00] VITALS: BP 134/76
--- NOTE | 2019-03-08 17:28 | NUR ---
PATIENT WORKED WITH THERAPY WITH ONGOING ASSESSMENT INDICATED. DISCUSSED WITH PATIENT HE FEELS HE COULD RETURN HOME. 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 LEFT SKILLED LIST. PATIENT NEEDS TO WORK WITH THERAPY AND HAVE OT EVAL. [facility] FOLLOWING
[2019-03-08 20:45] VITALS: BP 151/94
[2019-03-09 00:45] VITALS: BP 153/87
[2019-03-09 04:45] VITALS: BP 153/92
--- NOTE | 2019-03-09 07:40 | NUR ---
PT RESTING QUIETLY IN ROOM, PRN PAIN MED GIVEN FOR C/O CHRONIC PAIN, VSS, REPORT GIVEN TO NEXT SHIFT TO CON'T WITH PPOC.
[2019-03-09 08:00] VITALS: BP 105/83; BP 160/99
--- NOTE | 2019-03-09 09:48 | NUR ---
ASSUMED CARE AT 0700, SHIFT ASSESMENT DONE, MEDS GIVEN, VSS. WAITING TO BE SEEN BY OCCUPATIONAL THERAPHY. NSR ON TELE, ROOM AIR. REPORTED PAIN, PRN PAIN MEDS GIVEN. WILL CONTINUE TO ASSESS AND ASSIST WITH ADLs NEEDED.
[2019-03-09 16:00] VITALS: BP 142/96
--- NOTE | 2019-03-09 16:34 | NUR ---
FA[facility]ED REFERRAL TO [facility] SPOKE WITH VALERIE IN INTAKE AND SHE RECEIVED REFERRAL AND IS REVIEWING. DP TO FOLLOW.
--- NOTE | 2019-03-09 16:36 | NUR ---
PT recommends post acute care. Sp with patient who wants to return home he does not want to dc to rehab. Sp with dtr and family. dtr reports always family with patient. She reports if he wants to return home they are agreeable. They have utilized [facility] care and agreeable to [facility]. Referral to care. Therapy worked on steps this afternoon and aware of home.
[2019-03-09 16:55] VITALS: BP 160/99
--- NOTE | 2019-03-09 16:56 | NUR ---
[facility]XED RE[facility]ERR[facility] SPOKE WITH INTAKE AND THEY RECEIVED REFERRAL AND CAN ACCEPT. DP TO FOLLOW.
[2019-03-09 21:51] VITALS: BP 145/93
--- NOTE | 2019-03-10 03:39 | NUR ---
PT ARRIVED FROM AT 2140HRS. PT IS AO4 AND LETS NEEDS BE KNOWN. FALL PRECAUTION IN PLACE. ASSESSMENNTS CHARTED. PT COMPLAINED OF SOME PAIN AND WAS TREATED WITH PRN PAIN MEDS. PT WAS ABLE TO GET COMGORTABLE AND SLEEP PART OF THE SHIFT. VSS AND NO S/S OF ACUTE DISTRESS. WILL CONTINUE TO MONITOR.
[2019-03-10 04:46] VITALS: BP 160/92
[2019-03-10 07:40] VITALS: BP 158/89
[2019-03-10 12:59] VITALS: BP 160/99
[2019-03-10] MEDS ORDERED: METOPROLOL SUCC50 MG PO (14:03)
[2019-03-10] MEDS ORDERED: MUCINEX600 MG PO (14:04)
[2019-03-10] MEDS ORDERED: CEFDINIR300 MG PO (14:08)
[2019-03-10] MEDS ORDERED: PREDNISONE 10 M10 M1 PO (14:09)
[2019-03-10 14:37] VITALS: BP 160/99
--- NOTE | 2019-03-10 14:59 | NUR ---
PT ALERT AND ORIENTED TIMES FOUR. VSS, PT DENIES PAIN/SOA. PT TOLERATES MEDS MEALS, PT UP TO CHAIR WITH ASSIST OF ONE. PLANS TO DISCHARGE HOME TODAY. PT PROGRESSING TOWRADS POC GOALS.
[2019-03-12 11:39] VITALS: BP 160/99
== END 2019-03-10 16:17 | disposition home health service (06) | DRG 189 ==
LOC: ER 22:27 → 2N 03-05 00:14 → EROBS 03-05 00:14 → 2N 03-05 02:49 → 4W 03-09 21:54 → ENTRNSPT 03-10 16:01 → 4W 03-10 16:17
PROVIDERS: Emergency Medicine; Nurse Practitioner Family; ADMIT Internal Medicine
DX: J96.21 Acute and chronic respiratory failure with hypoxia (principal); J18.9 Pneumonia, unspecified organism; J44.1 Chronic obstructive pulmonary disease with (acute) exacerbation; N17.9 Acute kidney failure, unspecified; K56.609 Unspecified intestinal obstruction, unspecified as to partial versus complete obstruction; K56.7 Ileus, unspecified; J44.0 Chronic obstructive pulmonary disease with (acute) lower respiratory infection; E78.5 Hyperlipidemia, unspecified; K21.9 Gastro-esophageal reflux disease without esophagitis; G25.81 Restless legs syndrome; M19.90 Unspecified osteoarthritis, unspecified site; G89.4 Chronic pain syndrome; E86.0 Dehydration; F17.210 Nicotine dependence, cigarettes, uncomplicated; I65.29 Occlusion and stenosis of unspecified carotid artery; N18.9 Chronic kidney disease, unspecified; I73.9 Peripheral vascular disease, unspecified; Z96.641 Presence of right artificial hip joint; K59.00 Constipation, unspecified; I25.10 Atherosclerotic heart disease of native coronary artery without angina pectoris; R14.0 Abdominal distension (gaseous); Z95.820 Peripheral vascular angioplasty status with implants and grafts; Z71.6 Tobacco abuse counseling; Z79.82 Long term (current) use of aspirin; Z79.899 Other long term (current) drug therapy; Z98.42 Cataract extraction status, left eye; Z98.41 Cataract extraction status, right eye; Z28.21 Immunization not carried out because of patient refusal
CPT/HCPCS: 10047; 10081

== ENCOUNTER 2019-07-20 20:26 | Inpatient (IN) | payer OTHER ==
[~2019-07-20] VITALS: Ht 170.2 cm; Wt 66.7 kg
[~2019-07-20 20:26] MED LIST changes: +CEFDINIR300 MG PO; +METOPROLOL SUCC50 MG PO; +MUCINEX600 MG PO; +PREDNISONE 10 M10 M1 PO
[2019-07-20 20:27] VITALS: BP 104/58
[2019-07-20] MEDS ORDERED: [UNRECOGNIZED DRUG - OTHER] PO (20:50)
[2019-07-20] MEDS ORDERED: PLAVIX 75 MG TA75 MG PO (20:51)
[2019-07-20] MEDS ORDERED: VITAMIN D31 ML PO (20:53)
[2019-07-20 21:02] LABS: BE(vivo) -5.5 mmol/L (-2 to +3); HCO3 18.2 mmol/L (22.0-26.0); PCO2 30.5 mmHg (35.0-45.0); PO2 71.5 mmHg (80.0-100.0); pH 7.394 (7.360-7.450); sO2 94.6 % (92.0-98.0)
[2019-07-20 21:06] LABS: ABSOLUTE NEUTROPHILS 8.7 thou/uL (1.4-8.2); BASOPHILS 0.8 % (0.0-2.0); EOSINOPHILS 0.8 % (0.0-3.0); HEMATOCRIT 40.7 % (42.0-52.0); LYMPHOCYTES 24.9 % (24.0-44.0); MCH 31.3 pg (26.0-34.0); MONOCYTES 4.9 % (1.0-8.0); PLATELET COUNT 292 thou/uL (150-400); POLYS 68.6 % (36.0-66.0); RBC 4.16 mil/uL (4.50-6.00); RDW 15.2 % (10.5-14.5); WBC 12.6 thou/uL (4.0-11.0)
[2019-07-20 21:14] LABS: CALCIUM 9.9 mg/dL (8.5-10.1); CREATININE 1.8 mg/dL (0.7-1.3); POTASSIUM 4.7 mmol/L (3.5-5.1)
[2019-07-20 21:23] LABS: TROPONIN-I 0.1 ng/mL (<0.06)
[2019-07-20 22:44] LABS: URINE BILIRUBIN NEGATIVE (Negative); URINE BLOOD NEGATIVE (Negative); URINE CLARITY CLEAR; URINE COLOR YELLOW; URINE GLUCOSE-RANDOM* NEGATIVE (Negative); URINE KETONES NEGATIVE (Negative); URINE LEUKOCYTES-REFLEX NEGATIVE (Negative); URINE NITRITE-REFLEX NEGATIVE (Negative); URINE PROTEIN (DIPSTICK) NEGATIVE (Negative); URINE UROBILINOGEN 0.2 E.U./dl (0.2-1.0)
[2019-07-21] VITALS (9 sets, daily range): BP systolic 100–130; BP diastolic 54–72
--- NOTE | 2019-07-21 08:25 | NUR ---
ARRIVED FROM ED THIS MORNING AT 0300. ASSESSMENTS CHARTED, MEDS GIVEN CHARTED. PATIENT HAD BEEN NOT ACTING NORMAL DURING THE DAY, THEN WHILE WAITING FOR EMS TO ARRIVE PATIENT BECAME UNRESPONSIVE THEN ALTERED MENTAL STATUS. PATIENT STARTED ON NORMAL SALINE DRIP. SON WAS AT BEDSIDE TO ANSWER QUESTIONS DURING ADMISSION. PATIENT ON 4 LITERS NC. USING URINAL. PATIENT NEGATIVE FOR INFLUENZA A&B. CT OF CHEST SHOWED MULTIPLE LESIONS IN BILATERAL LUNGS, PET SCAN RECOMMENDED. CONSULTS TO PULMONOLOGY AND ONCOLOGY CALLED. FALL PRECAUTIONS IN PLACE.
--- NOTE | 2019-07-21 11:28 | 2DMMODE ---
[facility] [place] [address] 2 D/M-MODE ECHOCARDIOGRAM Name: MINGO LARA Room #: 201-P ADM IN M.R.#: [id number] Admission: 07/21/19 Attend Phys: Ruperto Douglas MD Discharge: Date of : 41 Report #: [id number] THIS REPORT FOR: cc: [facility] - Clinic physician unknown [facility] - Clinic physician unknown Ricky Quinn MD [facility] ~ APPROVED REPORT Study performed: 07/21/2019 10:08:11 EXAM: Comprehensive 2D, Doppler, and color-flow Echocardiogram Patient Location: Bedside Room #: 201 Status: routine BSA: 1.73 HR: 88 bpm BP: 111/56 mmHg Rhythm: NSR Other Information Study Quality: Technically Difficult Technically limited study due to lung disease. Indications COPD Elevated Troponin Hypertension/HDD HLD 2D Dimensions RVDd: 28.95 mm IVSd: 12.63 (7-11mm) LVOT Diam: 21.03 (18-24mm) LVDd: 29.42 mm PWd: 13.00 (7-11mm) LVDs: 26.38 (25-40mm) Aortic Root: 30.86 mm IVC: 16.00 mm Volumes Left Atrial Volume (Systole) Single Plane 4CH: 11.13 mL Single Plane 2CH: 23.52 mL LA ESV Index: 11.00 mL/m2 Aortic Valve [facility] [address] [place] [address] 2 D/M-MODE ECHOCARDIOGRAM Name: MINGO LARA Room #: 201-P [facility] IN ..#: [id number] Admission: 07/21/19 Attend Phys: Ruperto Douglas MD Discharge: Date of : 41 Report #: [id number] AoV Peak Bill.: 1.25 m/s AO Peak Gr.: 6.23 mmHg LVOT Max P.50 mmHg LVOT Max V: 1.17 m/s CHARMAINE Vmax: 3.26 cm2 Mitral Valve E/A Ratio: 0.7 MV Decel. Time: 205.96 ms MV E Max Bill.: 0.65 m/s MV A Bill.: 0.98 m/s MV PHT: 59.73 ms IVRT: 121.11 ms Pulmonary Valve PV Peak Bill.: 0.87 m/s PV Peak Gr.: 3.04 mmHg Tricuspid Valve RAP Estimate: 5.00 mmHg Left Ventricle The left ventricle is normal size. There is normal LV segmental wall motion. Mild concentric left ventricular hypertrophy. The left ventricular systolic function is normal. The left ventricular ejection fraction is within the normal range. LVEF is 55-60%. Mild diastolic dysfunction is present (impaired relaxation pattern). Right Ventricle The right ventricle is normal size. The right ventricular systolic function is normal. Atria The left atrium size is normal. The right atrium size is normal. Aortic Valve The aortic valve is mildly sclerotic, trileaflet. No aortic regurgitation is present. There is no aortic valvular stenosis. Mitral Valve The mitral valve is normal in structure. Trace mitral regurgitation. No evidence of mitral valve stenosis. Tricuspid Valve The tricuspid valve is normal in structure. There is no tricuspid [facility] [address] [address] 2 D/M-MODE ECHOCARDIOGRAM Name: MINGO LARA Room #: 201-P ADM IN [facility]#: [id number] Admission: 07/21/19 Attend Phys: Ruperto Douglas MD Discharge: Date of : 41 Report #: [id number] valve regurgitation noted. Unable to assess PA pressure. Pulmonic Valve Pulmonic valve is not well visualized. Great Vessels The aortic root is normal in size. IVC is normal in size and collapses >50% with inspiration. Pericardium There is no pericardial effusion. <Conclusion> The left ventricular systolic function is normal. There is normal LV segmental wall motion. LVEF is 55-60%. Mild diastolic dysfunction The aortic valve is mildly sclerotic, trileaflet. No aortic regurgitation or stenosis. The mitral valve is normal in structure. Trace mitral regurgitation. Unable to assess pulmonary artery pressure. There is no pericardial effusion. <ELECTRONICALLY SIGNED> By: Ricky Quinn MD, [facility] 07/21/19 1127 1127 [id number] Ricky Quinn MD, FACC /INF
--- NOTE | 2019-07-21 11:36 | NUR ---
REPORT RECEIVED FROM IRINA MOSLEY, CARE ASSUMED AT 0700. PT ASSESSED AT 0745, VSS, ORTHO BP COMPLETED, PT ORIENTED 2-3, PO PAIN MEDS GIVEN FOR BACK/LEG PAIN 12/12. PT ASLEEP 45 MINUTES LATER, PLAN OF CARE REVIEWED, PT VERBALIZED UNDERSTANDING. SPOKE WITH PT'S DAUGTER AND GAVE UPDATE ON HER FATHER. PT STATES THAT HER DAD SHOULD BE A FULL CODE. WILL MONITOR.
--- NOTE | 2019-07-21 13:39 | NUR ---
INITIAL ASSESSMENT: SW reviewed chart and spoke with nursing and attending physician. Pt was admitted from home due to AMS/elevated troponin. Pt is in isolation. SW spoke with pt's son, Duncan, via phone. Introduced role of SW. Pt lives at home with Duncan and his family. There are 10 steps up to the main living area, and 0 steps after that. Pt normally uses a cane to assist with ambulation. Pt has home O2 and is normally on 2L of O2 at home. Pt's son is unsure of home O2 provider. Prior to admission, pt was independent with ADLs. Pt has used [facility] and [facility] in the past. Pt has been to [facility]. Pt's PCP is Dr. Sean Gilbert at the [facility]. Therapy ordered to evaluate pt for recommendations for discharge needs. Will need insurance authorization for post-acute placement. SW is following to assist as needed with discharge planning.
[2019-07-22 01:00] VITALS: BP 132/80
--- NOTE | 2019-07-22 04:13 | NUR ---
ASSUMED PT CARE AT AROUND 1900, PT IS ALERT AND ORIENTEDX3, ASSESSMENTS CHARTED, SR ON THE MONITOR, VSS STABLE ON ROOM AIR, COMPLAINED OF CHRONIC BACK PAIN, MEDICATED PRN WITH PARTIAL RELIEF, REMAINS ON ISLOTAION, RESTING IN BED WITH NO DISTRESS, WILL CONTINUE TO MONITOR
[2019-07-22 04:30] VITALS: BP 126/66
--- NOTE | 2019-07-22 07:42 | EKG ---
[facility] [place] [address] ELECTROCARDIOGRAM REPORT Name: MINGO LARA Room #: 201-P ADM IN M.R.#: [id number] Admission: 07/21/19 Attend Phys: Ruperto Douglas MD Discharge: Date of : 41 Report #: [id number] THIS REPORT FOR: cc: [facility] - Clinic physician unknown [facility] - Clinic physician unknown Ricky Quinn MD [facility] ~ THIS REPORT FOR: //name// 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
[2019-07-22 09:08] LABS: HEMATOCRIT 35.5 % (42.0-52.0); HEMOGLOBIN 11.6 gm/dL (14.0-18.0); MCH 31.7 pg (26.0-34.0); MCHC 32.6 g/dL (28.0-37.0); MCV 97.4 fL (80.0-100.0); PLATELET COUNT 263 thou/uL (150-400); RBC 3.65 mil/uL (4.50-6.00); RDW 14.8 % (10.5-14.5); WBC 10.1 thou/uL (4.0-11.0)
[2019-07-22 09:16] LABS: CALCIUM 8.9 mg/dL (8.5-10.1); CREATININE 1.4 mg/dL (0.7-1.3)
[2019-07-22 09:18] LABS: POTASSIUM 4.1 mmol/L (3.5-5.1)
[2019-07-22 09:30] VITALS: BP 132/68
[2019-07-22 11:34] LABS: ABSOLUTE NEUTROPHILS 5.5 thou/uL (1.4-8.2); METAMYELOCYTES 1 %
[2019-07-22 11:35] LABS: ATYPICAL LYMPHS 2 %
[2019-07-22 11:37] LABS: ANISOCYTOSIS 1+
[2019-07-22 12:22] VITALS: BP 122/70
--- NOTE | 2019-07-22 15:27 | NUR ---
SW reviewed chart and spoke with nursing and attending physician. Pt remains in Enhanced Isolation. Therapy is working with pt to determine recommendation for disposition. SW is following to assist as needed with discharge planning.
[2019-07-22 16:19] VITALS: BP 136/79
--- NOTE | 2019-07-22 18:15 | NUR ---
ASSUMED CARE OF PATIENT AT 0700. PATIENT IN ISOLATION FOR RULE OUT BRITO VIRUS. DROPLET PRECAUTION ADHERED TO. PATIENT RECEIVING BREATHING TREATMENTS THEREFORE, N95 MASK WORN IN ADDITION TO A FACE SHIELD WITH GOWN AND GLOVES. TOTAL CARE OF PATIENT BY THIS RN. PATIENT HAD DECREASED APPETITE AND STATES THAT HE TAKES MEGACE AT HOME, THIS WAS ADDED BACK TO HIS MAR PER DR. MEZA. PATIENT TAKING OXYCODONE Q 4 HRS FOR CHRONIC LOWER BACK PAIN AND ASKS FOR IT EVERY FOUR HOURS. PATIENT ON IV ANTIBIOTICS AND NS. PATIENT ON ROOM AIR AND DENYING ANY DIFFICULTY BREATHING. PATIENT LEFT FOREARM IV INFILTRATED. IT WAS REMOVED WITHOUT ANY REDNESS, SWELLING OR IRRITATION. PATIENT IS RESTING COMFORTABLY. CONTINUE WITH POC.
[2019-07-22 22:00] VITALS: BP 115/77
[2019-07-23 05:00] VITALS: BP 136/81
[2019-07-23 05:53] LABS: HEMATOCRIT 38.4 % (42.0-52.0); HEMOGLOBIN 12.6 gm/dL (14.0-18.0); MCH 32.1 pg (26.0-34.0); MCHC 32.7 g/dL (28.0-37.0); MCV 98.2 fL (80.0-100.0); RBC 3.92 mil/uL (4.50-6.00); RDW 15.1 % (10.5-14.5); WBC 9.4 thou/uL (4.0-11.0)
[2019-07-23 06:03] LABS: CALCIUM 8.8 mg/dL (8.5-10.1); CREATININE 1.3 mg/dL (0.7-1.3); POTASSIUM 4.3 mmol/L (3.5-5.1)
--- NOTE | 2019-07-23 06:11 | NUR ---
ASSUME CARE 1900. PT/VITALS STABLE. PATIENT COMPLAINS OF INTERMITTENT CHRONIC BACK PAIN. MODERTE TOLERANCE TO ACTIVITY. NO DISTRESS NOTED THROUGH THE NIGHT. NO FEVER, SOA, OR COUGHING NOTED. ASSESSMENT AAS CHARTED. PROGRESSING WELL WITH POC. PLAN IS CONTINUE TO MONITOR FOR SIGNS OF COVID19. WILL CONTINUE TO MONITOR AND FOLLOW WITH POC
[2019-07-23 09:00] VITALS: BP 133/75
--- NOTE | 2019-07-23 13:00 | NUR ---
KRIS reviewed chart. Pt remains in Enhanced Isolation to r/o COVID-19. Therapy is on hold until results are available. Pt with multiple bilateral lung masses. Biopsy and workup will begin once COVIS-19 results are available. KRIS spoke with pt's son, Duncan and dtr, Heather, via phone to provide update . No weekend discharge anticipated. Pt's family is agreeable with referral to [facility]'s . Awaiting additional therapy notes at this time. Referral HH to be sent on Friday. KRIS is following to assist as needed with discharge planning.
[2019-07-23 16:43] VITALS: BP 185/96
[2019-07-23 17:21] VITALS: BP 149/72
--- NOTE | 2019-07-23 19:40 | NUR ---
A/O, cooperative; Coronavirus negative; Dr. Douglas ordered to take off the isolation; HR increased, BP increase, fever, reported to Dr. Douglas and Dr. Taversa, orders given and administrated.
[2019-07-23 20:11] VITALS: BP 148/80
[2019-07-24 04:45] VITALS: BP 112/64
[2019-07-24 06:47] LABS: MCH 32.1 pg (26.0-34.0); MCHC 33.3 g/dL (28.0-37.0); MCV 96.2 fL (80.0-100.0); RBC 4.06 mil/uL (4.50-6.00); RDW 14.8 % (10.5-14.5); WBC 10.7 thou/uL (4.0-11.0)
[2019-07-24 06:58] LABS: CALCIUM 8.9 mg/dL (8.5-10.1); CREATININE 1.2 mg/dL (0.7-1.3); POTASSIUM 4.2 mmol/L (3.5-5.1)
[2019-07-24 07:19] VITALS: BP 101/72
--- NOTE | 2019-07-24 08:07 | NUR ---
[facility] 1900. PT COMPLAINING OF LOWER BACK AND CHEST PAIN AT 10/10. DR. GALLEGOS PRESENT. ORDERS FO MORE EKG/CHEST AND ABDO CT WITH CONTRAST. EKG RESULTS SENT TO DOCTOR MARLON. ORDERS FOR ASA 650 RECEIVED AND TROP IN AM . ONETIME DOSE OF MORPHINE ORDERED/CHEST PAIN RELIEF NOTED. PASSED ON TO DAY NURSE TO TALK TO MD ABOUT CHANGING OR ADDING TO PAIN MEDS COZ OXY 15MG DOES NOT SEEM TO BE HELPING. TYLENOL FOR BREAKTHROUGH PAIN. ASSESSMENT CHARTED. PROGRESSING WELL WITH POC. PLAN IS TO CONTINUE WITH ABX AND MANAGGE PAIN LEVEL. WILL CONTINUE TO FOLLOW WITH POC
--- NOTE | 2019-07-24 09:56 | EKG ---
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: Genoveva CHANG : 1945 Requested By: Ruperto Douglas Order Number: [id number] MD: Tim Delvalle Measurements Intervals [place] Rate: 126 P: 73 AK: 119 QRS: 79 QRSD: 88 T: 84 QT: 343 QTc: 497 Interpretive Statements Sinus tachycardia Minimal ST elevation, inferior leads Borderline prolonged QT interval Compared to ECG 07/20/2019 20:28:57 ST (T wave) deviation now present Sinus rhythm no longer present Early repolarization no longer present Electronically Signed On 07-24-2019 9:55:08 CDT by Tim Delvalle [email or web address] <ELECTRONICALLY SIGNED> By: Tim Delvalle MD 07/24/19 0955 174 174 Tim Delvalle MD /EPI
--- NOTE | 2019-07-24 09:57 | EKG ---
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: Genoveva CHANG : 1945 Requested By: Milan Taveras Order Number: [id number] MD: Tim Delvalle Measurements Intervals [place] Rate: 114 P: 45 [place]: 129 QRS: 66 QRSD: 73 T: 74 QT: 330 QTc: 455 Interpretive Statements Sinus tachycardia Probable left atrial enlargement ST segment abnormalities, consider pericarditis Compared to ECG 07/20/2019 20:28:57 ST (T wave) deviation now present Sinus rhythm no longer present Early repolarization no longer present Electronically Signed On 07-24-2019 9:56:14 CDT by Tim Delvalle [email or web address] <ELECTRONICALLY SIGNED> By: Tim Delvalle MD 07/24/19955 32 32 Tim Delvalle MD /EPI
--- NOTE | 2019-07-24 09:59 | EKG ---
[facility] [place] [address] ELECTROCARDIOGRAM REPORT Name: MINGO LARA Room #: 201-P ADM IN M.R.#: [id number] Admission: 07/21/19 Attend Phys: Ruperto Douglas MD Discharge: Date of : 41 Report #: [id number] THIS REPORT FOR: cc: [facility] - Clinic physician unknown [facility] - Clinic physician unknown Tim Delvalle MD ~ THIS REPORT FOR: //name// 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
[2019-07-24 10:54] LABS: ALBUMIN 3.1 g/dL (3.4-5.0); DIRECT BILIRUBIN 0.5 mg/dL (<0.1-0.2); TOTAL BILIRUBIN 0.5 mg/dL (<0.1-1.0); TOTAL PROTEIN 7.2 g/dL (6.4-8.2)
[2019-07-24 10:58] VITALS: BP 106/68
[2019-07-24 16:18] VITALS: BP 97/57
[2019-07-24 20:13] VITALS: BP 115/68
--- NOTE | 2019-07-24 20:48 | NUR ---
ASSUMED CARE OF PATIENT AT 0700. A&O X 4. PATIENT DENIES ANY CHEST PAIN. ASSESSMENT COMPLETED. PATIENT COMPLAINS OF CHRONIC LOWER BACK PAIN WHICH IS ALLEVIATED WITH OXYCODONE AND LIDOCAINE PAIN PATCH. PATIENT WALKED WITH OT/PT TO THE BATHROOM USING A WALKER AND GAIT BELT WITH MINIMAL ASSISTANCE. PATIENT SAT UP IN THE CHAIR FOR HALF OF THE DAY. PATIENT TO CONTINUE WITH POC.
[2019-07-25 04:45] VITALS: BP 104/72
--- NOTE | 2019-07-25 06:40 | NUR ---
ASSESSMENTS CHARTED, MEDS GIVEN CHARTED. PATIENT RESTING IN BED DURING SHIFT. SINUS RHYTHM DURING SHIFT, LUNGS ARE CLEAR/DIMINISHED ON TWO LITERS OXYGEN. USING URINAL . C/O PAIN 12/12 BACK PAIN. FALL PRECAUTIONS IN PLACE. VSS. PLAN OF CARE IS TO HAVE LUNG BIOPSY ON TUESDAY 07/25.
[2019-07-25 07:30] VITALS: BP 111/63
[2019-07-25 11:30] VITALS: BP 119/61
[2019-07-25 16:50] VITALS: BP 117/76
--- NOTE | 2019-07-25 19:41 | NUR ---
ASSUMED CARE OF PATIENT AT 0700. ASSESSMENT CHARTED. TELE STRIPS PRINTED AND PLACED IN THE CHART. PATIENT TAKING OXY Q 4 FOR CHRONIC LOWER BACK PAIN IN ADDITION TO LIDOCAINE PATCH. PATIENT WAS SUCCESSFUL IN HAVING A BM TODAY WITHOUT ANY DIFFICULTY. AFEBRILE TODAY. PATIENT AMBULATED TO THE CHAIR AND BACK TODAY WITH HIS WALKER. PATIENT IS SCHEDULED FOR A LUNG BIOPSY TOMORROW. I CALLED DR. SANTOS TO MAKE SURE HE WAS AWARE THAT THE PATIENT IS ON ASA 650 MG Q 6. PATIENT TO GO NPO AT MIDNIGHT EXCEPT MEDS. PATIENT TO CONTINUE WITH POC.
[2019-07-25 19:58] VITALS: BP 130/78
[2019-07-26 05:10] VITALS: BP 124/67
--- NOTE | 2019-07-26 05:59 | NUR ---
ASSESSMENTS CHARTED, MEDS GIVEN CHARTED. PATIENT RESTING IN BED DURING SHIFT. PLAN IS FOR HIM TO HAVE NEEDLE BIOPSY IN THE AM. HAS BEEN NPO SINCE MIDNIGHT EXCEPT FOR SIPS WITH MEDS. UP WITH ASSIST AND WALKER TO BATHROOM. BOWEL MOVEMENT. FLUIDS RUNNING ENTIRE SHIFT. FALL PRECAUTIONS IN PLACE. C/O PAIN 8/10 SEVERAL TIMES DURING SHIFT FROM CHRONIC BACK PAIN.
[2019-07-26 08:00] VITALS: BP 135/83
--- NOTE | 2019-07-26 09:36 | 2DMMODE ---
[address] [address] 2 D/M-MODE ECHOCARDIOGRAM Name: MINGO LARA Room #: 201-P ADM IN M.R.#: [id number] Admission: 07/21/19 Attend Phys: Ruperto Douglas MD Discharge: Date of : 41 Report #: [id number] THIS REPORT FOR: cc: [facility] physician unknown [facility] physician unknown Tim Delvalle MD ~ APPROVED REPORT Study performed: 07/24/2019 09:43:57 EXAM: Limited 2D Echocardiogram with contrast Patient Location: Bedside Room #: 201 Status: routine BSA: 1.77 HR: 90 bpm Other Information Study Quality: Technically Difficult Indications Chest Pain Echo Enhancing Agent Indication: Endocardial border delineation Agent(s) / Amount(s) Used: Optison 3 cc Left Ventricle The left ventricle is normal size. The overall left ventricular systolic function appears normal. LVEF is 60-65%. Right Ventricle Right ventricle appears grossly normal in size. Atria The left atrium size is normal. The right atrium size is normal. Pericardium There is no pericardial effusion. <Conclusion> The left ventricle is normal size. The overall left ventricular systolic function appears normal. [address] [address] 2 D/M-MODE ECHOCARDIOGRAM Name: MINGO LARA Room #: 201-P [facility] IN [facility].#: [id number] Admission: 07/21/19 Attend Phys: Ruperto Douglas MD Discharge: Date of : 41 Report #: [id number] Right ventricle appears grossly normal in size. The left atrium size is normal. There is no pericardial effusion. <ELECTRONICALLY SIGNED> By: Tim Delvalle MD 07/26/1937 4 4 Tim Delvalle MD /INF
--- NOTE | 2019-07-26 11:49 | NUR ---
Patient with negative COVID 19 test. Therapy evals in process and recommend post acute care. Sp with patient, son and dtr. Referral to [facility] were patient has rec skilled care in past.
[2019-07-26 12:00] VITALS: BP 117/76
[2019-07-26 15:08] VITALS: BP 117/76
--- NOTE | 2019-07-26 15:32 | NUR ---
spoke with dtr who works at [facility] she reports patient wants to return home not skilled. Sp with patient and son who report agreeable for dc home with care. [facility] accepting.
[2019-07-26 16:00] VITALS: BP 134/65
--- NOTE | 2019-07-26 17:34 | NUR ---
ASSESSMENT CHARTED. PT ALERT AND ORIENTED. VSS. PRN PAIN MED GIVEN WITH PARTIAL RELIEF.UP IN THE CHAIR THIS AM. PLAN TO BE DISCHARGE TO HOME WITH HH IN THE MORNING. WILL CONTINUE TO MONITOR.
[2019-07-26 20:00] VITALS: BP 107/76
[2019-07-27 04:00] VITALS: BP 120/75
--- NOTE | 2019-07-27 06:27 | NUR ---
ASSESSMENTS CHARTED, MEDS CHARTED GIVEN PATIENT RESTING IN BED DURING SHIFT. HAS NOT SLEPT WELL AND HAS MORE TROUBLE TONIGHT CONTROLLING PAIN. PATIENT'S NEEDLE BIOPSY WAS CANCELLED YESTERDAY DUE TO PLAVIX AND ASPIRIN LOAD. PROCEDURE IS NOW SCHEDULED FOR OUTPATIENT. HE IS NOW PLANNING ON GOING HOME TODAY AND WAITING THE 4 DAYS BEFORE THE PROCEDURE. FALL PRECAUTIONS IN PLACE. C/O PAIN 8/10 MULTIPLE TIMES DURING SHIFT.
[2019-07-27 07:21] VITALS: BP 134/77
[2019-07-27] MEDS ORDERED: MEGESTROL ACETA40 MG PO (11:10)
[2019-07-27] MEDS ORDERED: LIDOPATCH1 EACH TRANSDERM (11:10)
[2019-07-27] MEDS ORDERED: COLCHICINE0.6 M1 PO (11:16)
--- NOTE | 2019-07-27 11:59 | NUR ---
ASSESSMENT CHARTED. PT ALERT AND ORIENTED. VSS. PRN PAIN MED GIVEN WITH PARTIAL RELIEF. SEEN BY DR. MEZA. ORDERS GIVEN TO DISCHARGE PT TO HOME. DISCHARGE INSTRUCTIONS GIVEN TO PT AND THE SON. THEY BOTH VERBERLISED UNDERSTANDING. PT LEFT THE FACILITY ACCOMPANIED BY THE SON.
[2019-07-27 13:35] VITALS: BP 117/76
[2019-07-27 14:52] VITALS: BP 117/76
[2019-07-27 15:13] VITALS: BP 117/76
--- NOTE | 2019-07-27 15:24 | NUR ---
FAXED REFERRAL TO [facility] SPOKE WITH BRYAN IN INTAKE SHE CANNOT ACCEPT THEY ARE AT [place]. FAXED REFERRAL TO [facility] THEY ARE ALSO AT [facility]. [facility] SPOKE WITH SABINE IN INTAKE SHE RECEIVED REFERRAL AND CAN ACCEPT FAXED DC ORDERS/SUMMARY RECEIVED CONFIRMATION AND THEY WILL NOTIFY PT TIME OF VISITS.
== END 2019-07-27 12:01 | disposition home health service (06) | DRG 871 ==
LOC: ER 20:26 → 2N 07-21 01:03 → EROBS 07-21 01:03 → 2N 07-21 02:40 → ENTRNSPT 07-27 11:43 → 2N 07-27 12:01
PROVIDERS: Emergency Medicine; ADMIT Hospitalist
DX: A41.9 Sepsis, unspecified organism (principal); N17.0 Acute kidney failure with tubular necrosis; J96.21 Acute and chronic respiratory failure with hypoxia; J96.22 Acute and chronic respiratory failure with hypercapnia; G93.40 Encephalopathy, unspecified; I50.22 Chronic systolic (congestive) heart failure; I31.9 Disease of pericardium, unspecified; J96.10 Chronic respiratory failure, unspecified whether with hypoxia or hypercapnia; I13.0 Hypertensive heart and chronic kidney disease with heart failure and stage 1 through stage 4 chronic kidney disease, or unspecified chronic kidney disease; R91.8 Other nonspecific abnormal finding of lung field; E78.5 Hyperlipidemia, unspecified; K21.9 Gastro-esophageal reflux disease without esophagitis; J44.9 Chronic obstructive pulmonary disease, unspecified; G25.81 Restless legs syndrome; M19.90 Unspecified osteoarthritis, unspecified site; G89.29 Other chronic pain; Z96.641 Presence of right artificial hip joint; I73.9 Peripheral vascular disease, unspecified; M54.9 Dorsalgia, unspecified; F17.210 Nicotine dependence, cigarettes, uncomplicated; N18.9 Chronic kidney disease, unspecified; I65.29 Occlusion and stenosis of unspecified carotid artery; I25.10 Atherosclerotic heart disease of native coronary artery without angina pectoris; Z71.6 Tobacco abuse counseling; Z79.899 Other long term (current) drug therapy
CPT/HCPCS: 10081

== ENCOUNTER → 2019-09-08 | Outpatient (CLI) | payer OTHER ==
[~2019-09-08] MED LIST changes: +COLACE 100 MG100 MG PO; +COLCHICINE0.6 M1 PO; +LIDOPATCH1 EACH TRANSDERM; +MEGESTROL ACETA40 MG PO; +MIRALAX17 GM PO; +MSL20MG/ML PO; +NAPROXEN250 MG PO; +OXYCODONE HCL10 MG PO; +PLAVIX 75 MG TA75 MG PO; +VITAMIN D31 ML PO; +[UNRECOGNIZED DRUG - OTHER] PO
== END ==
LOC: SJCVC 14:11
DX: I10 Essential (primary) hypertension (principal); E78.5 Hyperlipidemia, unspecified; I73.9 Peripheral vascular disease, unspecified; J44.9 Chronic obstructive pulmonary disease, unspecified; R41.89 Other symptoms and signs involving cognitive functions and awareness; Z87.898 Personal history of other specified conditions; Z79.899 Other long term (current) drug therapy; Z87.891 Personal history of nicotine dependence

== ENCOUNTER 2019-09-10 11:34 | Inpatient (IN) | payer OTHER ==
[~2019-09-10] VITALS: Ht 180.3 cm; Wt 52.6 kg
[~2019-09-10 11:34] MED LIST changes: -COLACE 100 MG100 MG PO; -MIRALAX17 GM PO; -MSL20MG/ML PO; -NAPROXEN250 MG PO; -OXYCODONE HCL10 MG PO
[2019-09-10 12:20] VITALS: BP 110/77
[2019-09-10 12:54] LABS: ABSOLUTE NEUTROPHILS 12.6 thou/uL (1.4-8.2); BASOPHILS 1.3 % (0.0-2.0); EOSINOPHILS 0.4 % (0.0-3.0); HEMATOCRIT 39.4 % (42.0-52.0); HEMOGLOBIN 13.2 gm/dL (14.0-18.0); LYMPHOCYTES 15.5 % (24.0-44.0); MCH 31.6 pg (26.0-34.0); MCHC 33.5 g/dL (28.0-37.0); MCV 94.1 fL (80.0-100.0); MONOCYTES 6.3 % (1.0-8.0); PLATELET COUNT 331 thou/uL (150-400); POLYS 76.5 % (36.0-66.0); RBC 4.19 mil/uL (4.50-6.00); RDW 14.5 % (10.5-14.5); WBC 16.4 thou/uL (4.0-11.0)
[2019-09-10 12:58] LABS: ANION GAP 13 mmol/L (7-16); BUN 21 mg/dL (7-18); CALCIUM 9.5 mg/dL (8.5-10.1); CHLORIDE 100 mmol/L (98-107); CO2 18 mmol/L (21-32); CREATININE 1.3 mg/dL (0.7-1.3); GLUCOSE 100 mg/dL (74-106); POTASSIUM 4.3 mmol/L (3.5-5.1); SODIUM 131 mmol/L (136-145)
[2019-09-10 13:09] LABS: ALBUMIN 3.3 g/dL (3.4-5.0); SGOT 34 U/L (15-37); SGPT 29 U/L (30-65); TOTAL BILIRUBIN 0.5 mg/dL (<0.1-1.0); TOTAL PROTEIN 7.5 g/dL (6.4-8.2); TROPONIN-I <0.06 ng/mL (<0.06)
[2019-09-10 15:57] LABS: URINE BILIRUBIN NEGATIVE (Negative); URINE BLOOD NEGATIVE (Negative); URINE CLARITY CLEAR; URINE COLOR YELLOW; URINE GLUCOSE-RANDOM* NEGATIVE (Negative); URINE KETONES NEGATIVE (Negative); URINE LEUKOCYTES-REFLEX NEGATIVE (Negative); URINE NITRITE-REFLEX NEGATIVE (Negative); URINE PROTEIN (DIPSTICK) NEGATIVE (Negative); URINE SPECIFIC GRAVITY <= 1.005 (1.005-1.035); URINE UROBILINOGEN 0.2 E.U./dl (0.2-1.0)
--- NOTE | 2019-09-10 16:20 | EKG ---
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 : 1945 Requested By: Flash Craig Order Number: [id number] MD: Ricky Quinn Measurements Intervals [place] Rate: 81 P: 46 UT: 188 QRS: 58 QRSD: 87 T: 63 QT: 359 QTc: 417 Interpretive Statements Sinus rhythm Abnormal R-wave progression, early transition Compared to ECG 07/24/2019 08:49:[address] segment elevation is no longer present Electronically Signed On 09-10-2019 16:18:32 CDT by Ricky Quinn [email or web address] <ELECTRONICALLY SIGNED> By: Ricky Quinn MD, [facility] 09/10/19 1618 121 11 Ricky Quinn MD, [facility] /EPI
[2019-09-10 18:01] VITALS: BP 101/72
--- NOTE | 2019-09-10 18:20 | NUR ---
TERESA NEIL (PT'S DAUGHTER) PHONE [phone] CHARLINE (SON) PHONE [phone]
[2019-09-10 18:42] VITALS: BP 101/72
--- NOTE | 2019-09-10 19:09 | NUR ---
Report received from ER staff at 1827. Report given to welt beater nurse since pt still not in the webb during shift change. Pt arrived in the webb at 1900, pt transferred to the room safely; kept comfortable.
[2019-09-10 19:35] VITALS: BP 146/78
[2019-09-10 21:27] LABS: BE(vivo) -4.5 mmol/L (-2 to +3); HCO3 17.6 mmol/L (22.0-26.0); PCO2 25.3 mmHg (35.0-45.0)
--- NOTE | 2019-09-10 23:15 | NUR ---
PATIENT ALERT AND ORIENTED X4. SLOW TO RESPOND AT TIMES. COOPERATIVE WITH CARE. NO SKIN BREAKDOWN NOTED. NEW ADMIT TONIGHT AT 1905 VIA CART. ASSESSMENT DONE BY THIS NURSE. PATIENT C/O PAIN TO HIS BACK AND WAS GIVEN OXY 15MG PO WITH GOOD RESULTS. VOIDING PER URINAL. ROOM AIR. ABG'S DRAWN AFTER TRANSFER. THIS NURSE RETURNED CALL TO DAUGHTER (TERESA) WITH UPDATE. UP TO BSC WITH ASSIST OF ONE AND WALKER PER ANOTHER NURSE. PATIENT ON FALL PRECAUTIONS. GIVEN SNACK PER REQUEST. RESTING QUIETLY, WILL MONITOR.
[2019-09-11 00:15] VITALS: BP 117/90
[2019-09-11 04:00] VITALS: BP 119/87
--- NOTE | 2019-09-11 05:56 | NUR ---
MEDICATED PATIENT X2 FOR PAIN DURING THE NIGHT AT TIME OF NOTE. REMAINS PLEASANT AND COOPERATIVE. DAUGHTER (TERESA) WILL BE CALLING TO CHECK ON HIM TODAY (09/11/2019). PATIENT IS ASLEEP AT TIME OF NOTE. WILL MONITOR.
[2019-09-11 08:38] VITALS: BP 139/89
--- NOTE | 2019-09-11 14:42 | NUR ---
PT CARE ASSUMED AT 0700. A&Ox4. PT IS VERY WEAK AND IS UP WITH A GAITBELT AND A WALKER TO THE BEDSIDE COMMMODE. PT COMPLAINS OF NOT BEING ABLE TO HAVE A BM AND HAS REQUESTED A STOOL SOFTNER. SCD'S. FAMILY UPDATED ON CURRENT MEDICAL STATUS. COVID NEGATIVE. PT STATUS CHANGED TO [facility] AND WILL TRANSFER ONCE A BED IS AVAILABLE. HE HAS BEEN CLEARED TO TRANSFER OFF OF UNIT BY ID. PT CONTINUES TO HAVE A POOR APPETITE AND WILL START SUPPLEMENTS WITH DINNER TODAY. MONITOR WEIGHT. RT/PUL/SW ON THE CASE. FAMILY IS INTERESTED IN HOSPICE CARE. DR. LYNN TRIED TO CALL THE SON AND COULD NOT LEAVE A MESSAGE BECAUSE HIS VOICEMAIL WAS FULL. PT USES URINAL. BOTH IV'S ARE PATENT WITH NO REDNESS OR EDEMA, SALINE LOCKED. FALL PROTOCOL IN PLACE. CALL LIGHT IN REACH. WILL CONTINUE TO MONITOR.
[2019-09-11 15:51] VITALS: BP 129/76
--- NOTE | 2019-09-11 16:43 | NUR ---
PT TRANSFERED FROM 3W TO 4W PER BED AT 1540 IN STABLE CONDITION.FAMILY HAS BEEN NOTIFIED PRIOR TO COMING TO FLOOR.ASSESSMENT COMPLETED.VSS. NO VERBAL C/O.DINNER WILL BE GIVEN WHEN DELIVER AT 1730.NO VERBAL C/O. WILL CONTINUE TO MONITOR.
[2019-09-11 19:28] VITALS: BP 138/72
--- NOTE | 2019-09-12 01:55 | NUR ---
ASSUMED CAREO F PT AT 1900HRS. PT IS AOXX WITH SOME CONFUSION AND FORGETFULNESS. FALL PRECAUTION IN PLACE. RT SCHEDULED. PT COMPLAINED OF PAIN AND WAS TREATED WITH PRN PAIN MEDS. PT DENIED NAUSEA OR SOA. PT HAS LOW APPETITE. PT WAS ABLE TO GET COMFORTABLE AND SLEEP PART OF THE SHIFT. VSS AND NO S/S OF ACUTE DISTRESS. WILL CONTINUE TO MONITOR.
[2019-09-12 03:24] VITALS: BP 115/71
[2019-09-12 07:02] VITALS: BP 135/63
[2019-09-12 15:45] VITALS: BP 122/72
--- NOTE | 2019-09-12 17:00 | NUR ---
Assumed pt care at 7am.Pt in bed sleeping on and off.Assessment completed.vss. Pt has poor appetite but drank 100% ensure.Pt dtr caaled and updates left per voice mail.Medicated pt with oxy later this afternoon,pt called out one hour later for additional dose.Dr Harris paged and order noted.Will continue to monitor.
[2019-09-12 19:56] VITALS: BP 144/91
--- NOTE | 2019-09-13 05:03 | NUR ---
Assumed pt care at 1900.Pt A/OX4 with forgetfulness noted but able to make needs known. VSS. Up with AX1/RW. C/o N/V, order obtained for IV Zofran and administered with relief reported. C/o severe back pain medicated per EMAR with relief and pt resting well through the night. Incontinent of B&B this shift. No c/o SOA. Has 2 PIV's patent. Fall precautions in place and pt calls approp. Resting quietly at this time, will continue to monitor pt.
[2019-09-13 06:15] VITALS: BP 170/98
[2019-09-13 07:30] VITALS: BP 171/98
--- NOTE | 2019-09-13 12:02 | NUR ---
ASSUMED CARE AT 0700. PT VERY SLEEPY, BUT AROUSABLE. OPENED HIS EYES AND TOOK SOME SIPS OF WATER. NO OTHER COMPLAINTS. VSSA. RA. NO N/V, BUT NOT EATING. WILL MONITOR. NOT C/O PAIN, WILL KEEP MONITORING.
--- NOTE | 2019-09-13 13:02 | NUR ---
FAXED REFERRAL TO [facility] RECEIVED CONFIRMATION AND SPOKE WITH ANS. SERVICE THEY WILL NOTIFY INTAKE AND THEY WILL CALL JULIETH MENJIVAR).
--- NOTE | 2019-09-13 13:03 | NUR ---
PT ADMITTED RELATED TO WEAKNESS. CM REVIEWED CHART AND SPOKE WITH CARE TEAM. CM ATEMPTED PT TO PT'S ROOM WITH NO ANSWER. PHSICIAN HAD BEEN SPEAKING WITH PT'S DTR TERESA . CM CALLED AND SPOKE WIHT HER. SHE CONFIRMED THAT PT RESIDES IN A HOUSE WITH HIS SON CHARLINE AND HIS . SHE INDICATED THAT THEY CAN TAKE PT INTO THE HOME THROUGH THE BACK IN A WC WITH 3 STEPS TO ENTER. SHE INDICATED PT HAD HOME O2 AT [employer]L [employer], A WHEELCHAIR, AND A FWW. SHE INDICATED THAT THEY ARE INERESTED IN PT RETURING HOME ON HOSPICE SERVICES AND THAT THEY WOULD LIKE TO USE [facility]. REFERRAL SENT TO [facility]. CM CALLED AND ASKED FOR [facility]DELRAHMAN TOMLIN AND SPOKE WITH THE OFFICE. CM TO ASSIST IN FACILITATING DC HOME WITH [facility] THIS DAY.
--- NOTE | 2019-09-13 13:29 | NUR ---
Nutrition: pt admitted with weakness, probable evolving metastatic lung CA. Seen due to low BMI 16. Weight hx reflecting 147# in july, 127# on 09/11 and 116# today-unsure accuracy. Pt not eating much but drinking ensure, will order TID. Physician has documented malnutrition-RD would agree. CM working with pt to D/C home with hospice soon.
[2019-09-13] MEDS ORDERED: OXYCODONE HCL10 MG PO (13:45)
[2019-09-13] MEDS ORDERED: MSL20MG/ML PO (13:45)
[2019-09-13] MEDS ORDERED: NAPROXEN250 MG PO (13:45)
[2019-09-13] MEDS ORDERED: COLACE 100 MG100 MG PO (13:45)
[2019-09-13] MEDS ORDERED: MIRALAX17 GM PO (13:45)
[2019-09-13 15:22] VITALS: BP 120/81
[2019-09-13 15:42] VITALS: BP 171/98
--- NOTE | 2019-09-13 15:48 | NUR ---
CM SPOKE WITH Gayle DTR. MICHELET SPOKE WITH TOMAS TOMLIN NURSE AT [facility]. CM NOTIFIED [facility] THAT SHE WOULD BE COMING BY AT 1530 TO DO ONSITE EVAL FOR POSSIBLE ADMISSION. CM COMPLETED [facility] FORM AWAITING RESPONSE FROM [facility] TO SEE IF ARRANGEMENTS CAN BE MADE FOR PT TO DC HOME THIS DAY. CM TO FOLLOW INDICATED WITH DC PLANNING.
[2019-09-13 16:01] VITALS: BP 171/98
--- NOTE | 2019-09-13 16:42 | NUR ---
CM SPOKE WITH PT'S DTR TERESA, HOSPITALIST, AND ABDELRAHMAN VAN NURSE. ALL ARE ON BOARD WITH DC HOME WITH HOSPICE THIS EVENING. CM FAXED [facility] FORM. AWAITING CLARIFICATION ON WHEN MEDS CAN BE DELIVERED TO THE HOME THEN [facility] TRANSPORT WILL NEED TO BE ARRANGED. CM FAXED FORM AND FAXED IT TO THE UNIT. NURSE WILL NEED TO CALL TO ARRANGE TRANSPORT. NO OTHER CM INTERVENTION INDICATED. CASE CLOSED.
--- NOTE | 2019-09-13 21:01 | NUR ---
Pt discharged to home w/hospice at 1935 accompanied by LEANNA personal via stretcher. A/OXTiny,VSS,medicated for pain prior to discharge. All personal belongings sent with pt.
== END 2019-09-13 19:35 | disposition hospice, home (50) | DRG 871 ==
LOC: ER 11:34 → 4W 16:27 → EROBS 16:27 → 3W 18:43 → 4W 09-11 15:42
PROVIDERS: Physician Assistant; ADMIT Internal Medicine
DX: A41.9 Sepsis, unspecified organism (principal); J18.9 Pneumonia, unspecified organism; G92 Toxic encephalopathy; J96.21 Acute and chronic respiratory failure with hypoxia; E87.1 Hypo-osmolality and hyponatremia; E46 Unspecified protein-calorie malnutrition; Z68.1 Body mass index [BMI] 19.9 or less, adult; J44.0 Chronic obstructive pulmonary disease with (acute) lower respiratory infection; E78.5 Hyperlipidemia, unspecified; K21.9 Gastro-esophageal reflux disease without esophagitis; F17.210 Nicotine dependence, cigarettes, uncomplicated; G25.81 Restless legs syndrome; G89.29 Other chronic pain; M19.90 Unspecified osteoarthritis, unspecified site; Z51.5 Encounter for palliative care; Z96.641 Presence of right artificial hip joint; R63.4 Abnormal weight loss; D64.9 Anemia, unspecified; E87.8 Other disorders of electrolyte and fluid balance, not elsewhere classified; Z20.828 Contact with and (suspected) exposure to other viral communicable diseases; R91.8 Other nonspecific abnormal finding of lung field; Z87.01 Personal history of pneumonia (recurrent); Z98.42 Cataract extraction status, left eye; Z98.41 Cataract extraction status, right eye; Z83.3 Family history of diabetes mellitus; Z95.9 Presence of cardiac and vascular implant and graft, unspecified; Z79.899 Other long term (current) drug therapy
CPT/HCPCS: 10047; 10879